=== PATIENT | female | born 1950 | race Caucasian/White ===

== ENCOUNTER → 2020-04-13 13:14 | Outpatient (BNVA) | payer MEDICARE, OTHER, SELFPAY | PROVIDERS: Family Provider Family Medicine; PCP Family Medicine; Visit Provider Orthopaedic Surgery | DX: M47.894 Other spondylosis, thoracic region (principal); M47.892 Other spondylosis, cervical region; M54.6 Pain in thoracic spine; M54.2 Cervicalgia; M54.5 Low back pain | CPT/HCPCS: 72050; 72070; 72114 ==

== ENCOUNTER 2020-09-15 08:03 | Outpatient (CLI) | payer MEDICARE, OTHER, SELFPAY ==
[2020-09-15 08:26] VITALS: BMI 33.5
--- NOTE | 2020-09-15 08:29 | ECG_ITS ---
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 The perfusion scan will be documented separately. DATA: Baseline heart rate was 74 beats per minute. Baseline blood pressure was 160/103 millimeters of mercury. Target heart rate was 148. Maximum heart rate achieved was 132. which was 89 % of the predicted target heart rate. Maximum blood pressure was 182/103 millimeters of mercury. The reason for ending the test was completion of the protocol. The patient did not experience any symptoms. ELECTROCARDIOGRAM: BASELINE: Sinus rhythm. Normal axis. Right bundle branch block EXERCISE: After Lexiscan injection, no ST-T changes suggestive of ischemic noted. No arrhythmia noted. CONCLUSION: Please note due to baseline abnormality of the EKG specificity and sensitivity of the EKG portion of LexiScan MIBI stress test will be low 1. EKG not suggestive of ischemia 2. Lexiscan injection unremarkable. 3. Perfusion scan will be documented separately. Electronically Signed On 10-12-2020 18:55:04 CDT by ANEL CORBIN [email or web address]
--- NOTE | 2020-09-15 08:30 | NMCV_ITS ---
NM carmen perf SPECT r/s* [id number] Hector Delgadillo Age: 70 Gender: F : 1950 Exam Date: 09/15/2020 09:56 Ordering Phys: Karishma Diego Technologist: YULIANA Cruz Exam Location: [facility] Indications: ANGINA STRESS TEST Please see separate stress test report in [facility] for full findings IMAGE PROTOCOL Rest/Stress 1 Lexiscan Day Radiopharmaceutical Dose (mCi) Administration Site Administered by Rest: Tc-99m 10.6 IV Pat Pickard, YULIANA Sestamibi Stress:Tc-99m 33.0 IV Pat Pickard, LEARNING ADMINISTRATOR Sestamibi Rest: 15-Sep-2020 60 Discovery 630 Stress: 15-Sep-2020 30 Discovery 630 0.4mg Lexiscan. Images obtained in supine and prone position. SPECT RESULTS Technical Quality: Excellent Raw Data Analysis: Normal Image Corrections: No attenuation or motion correction applied Summed Stress Score: 4 Summed Rest Score: 1 Summed Difference Score: 3 PERFUSION FINDINGS SPECT images demonstrate homogeneous tracer distribution throughout the myocardium. FUNCTIONAL RESULTS (calculated via Gated SPECT) Stress Image LV EF (%): 79 Stress EDV (mL):87 TID: 1.11 Stress ESV (mL):18 Rest Image LV EF (%): 79 FUNCTIONAL FINDINGS: There is normal left ventricular systolic function. IMPRESSIONS Myocardial perfusion imaging is normal low probability for obstructive coronary disease. EKG segment will be documented separately. Sindhu Keith MD (Electronically Signed) Final Date: 15 September 2020 12:48 S
[2020-09-15] MEDS: regadenoson 0.4 Mg/5 ml Syringe IVP (10:32)
--- NOTE | 2020-09-15 10:32 | SUR.PREOP ---
Patient reports no pain or discomfort prior to the start of the procedure.
[2020-09-15 10:41] VITALS: BP 152/84; PULSE 99
== END 2020-09-15 08:04 | disposition home or self-care (01) ==
LOC: CDL 08:08
PROVIDERS: PCP Family Medicine; Visit Provider Nurse Practitioner Family
DX: I20.9 Angina pectoris, unspecified (principal)
CPT/HCPCS: 78452; 93017; A9500; J2785

== ENCOUNTER → 2020-09-28 10:50 | Outpatient (BNVA) | payer MEDICARE, OTHER, SELFPAY | PROVIDERS: PCP Family Medicine; Visit Provider Nurse Practitioner Family | DX: E78.5 Hyperlipidemia, unspecified (principal); I25.10 Atherosclerotic heart disease of native coronary artery without angina pectoris; I50.30 Unspecified diastolic (congestive) heart failure | CPT/HCPCS: 80048; 80061; 85025 ==

== ENCOUNTER → 2020-10-11 10:01 | Outpatient (BNVA) | payer MEDICARE, OTHER, SELFPAY | PROVIDERS: PCP Family Medicine; Visit Provider Nurse Practitioner Family | DX: I25.10 Atherosclerotic heart disease of native coronary artery without angina pectoris (principal); I50.30 Unspecified diastolic (congestive) heart failure | CPT/HCPCS: 87635 ==

== ENCOUNTER 2020-10-15 09:22 | Outpatient (CLI) | payer MEDICARE, OTHER, SELFPAY ==
[2020-10-14] VITALS (23 sets, daily range): BP systolic 105–166; BP diastolic 61–111; PULSE 58–89; RESP 16–28; TEMP 36.5; O2SAT 90–95; BMI 33.6
--- NOTE | 2020-10-14 09:00 | XACV_ITS ---
Exam Room: [facility] Ht: 160 cm Wt: 86 kg BSA: 1.99 m2 Gender: Female : 1950 Exam Priority: Routine Procedure(s): Procedure Description: Diagnostic procedure Procedure Description: Coronary Angiography Diagnostic Cath Status: Elective Diagnostic Findings * Left Main has no disease. * Mid Left Anterior Descending: total occlusion, ANDREY: 0 flow. * Left Internal Mammary Artery to Distal Left Anterior Descending graft: patent. * Proximal Right Coronary Artery to Mid Right Coronary Artery: obstructive 60% stenosis, ANDREY: 3 flow. * Mid Circumflex: total occlusion, ANDREY: 0 flow. * Ascending Aorta to Distal Circumflex graft: patent. * 1st Diagonal: significant 80% stenosis, ANDREY: 3 flow. * Ascending Aorta to 1st Diagonal graft: patent. * Three grafts visualized. * Coronary angiography shows right dominance. Conclusions 1. There is total occlusion coronary artery disease with three vessel disease. 2. Three coronary grafts visualized: all grafts patent. 3. Patient has prior CABG. 4. FFR: After equalizing the distal and proximal pressure of FFR wire proximal to the lesion, mid RCA lesion was crossed with FFR wire. IV adenosine at rate of 140 mcg/min was started. Patient did not compliant of any symptoms, at then end of two minutes FFR was recorded as 0.86, which is not significant . Recommendations * Continue current medical management and risk factor modification. Diagnostic RX Recommendation: medical therapy and/or counseling Pressures Phase:Rest AO : 145 / 69 ( 102 ) @ 10:29:00 AM 143 / 69 ( 100 ) @ 10:29:00 AM 134 / 62 ( 91 ) @ 10:30:00 AM LV : 70 / -16 / 2 @ 10:28:00 AM 145 / -17 / 11 @ 10:29:00 AM Valves Phase:DefaultPhase AV : 0.0 @ 12:00:34 PM AV Mean Gradient: 0.0 @ 12:00:34 PM Clinical Evaluation EBL: 5mL-10mL Procedural Details Procedure Consent Obtained. Pre-Procedure Time Out. Identified patient by full name and date of as verbalized by the patient/guarantor. Does the consent match the physician's order: Yes. Accurate & Complete Informed Consent: Yes. Inpatient/Outpatient History & Physical on Chart: Yes. If H&P is completed, is and addenduem needed: No; If yes, is the addendum complete: N/A. Visualize and Verify Site with Patient/Guarantor: N/A. Relevant Radiology Images available: Yes. Pre-op teaching completed and patient verbalized understanding. The risks, benefits, and alternatives of sedation and/or procedure were discussed by physician. The patient agrees to continue. Procedure started. Correct patient, site and procedure confirmed by cath team. Current diagnosis: Chest Pain. PERRLA. 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 Lungs clear x 5 lobes. IV Site on Arrival: 20 gauge in the right anticubital. IV Fluids: 0.9% NaCl at KVO. 0 mL infused prior to microbiology lab manager. Pre Procedural Pulses: bilateral dorsalis pedis was 3+. Pre Procedural Pulses: bilateral posterior tibial was Doppled. Pre Procedural Pulses: bilateral radial was 3+. Oxygen started at 2liters/min via nasal canula. bilateral groins was prepped with chloroprep then draped in the usual sterile fashion. Physician notified. Baseline sample Acquired. HR: 67 BPM. Equipment: 6F - Femoral. Cardiac Cath Pack. ACIST Manifold Kit Model BT 2000. Heparinized Saline (2 units/mL), 1000 mL bag. Kit, Micropuncture. Physician arrived. Physician scrubbed in. Immediate Pre-Procedure Time Out. Correct Patient: Yes; Correct Procedure: Yes; Correct Site: Yes; Correct Patient Position: Yes; Correct Supplies: Yes; Dried Flammable Prep: Yes; Blood Products Available: No;. Lidocaine 1% infiltrated to the right groin. Arterial access obtained. A 6 german JR4 catheter in over wire. Multiple views taken of left coronary artery. Catheter removed over the exchange wire. A 6 german JR4 catheter in over wire. EDP Sample taken: LV 70/-17,2; HR: 62 BPM; SpO2: 96%. Pullback taken: LV 145/-18,11; AO 145/69(102); Mean: 0mmHg, Peak to Peak: 0mmHg, SEP: 16sec/min; HR: 66 BPM; SpO2: 96%. SVG's to Diaganol visualized and patent. SVG's to PDA visualized and patent. OSORIO to LAD visualized. 6 german JR 4 guide catheter was inserted over the wire. Pressure wire inserted. Wire seated in the RCA. An FFR value of 0.85 was obtained for a lesion located at Prox RCA. Adenosine 722ml/hr ran for 2 minutes during FFR. Wire out. Guide out. Total IV fluids: 59 mL. Medication's Wasted: Other = Adenosine 25 mg. Medication's Wasted: Other = Versed 1 mg. Medication's Wasted: Lidocaine 1% = 10 mL. Medication's Wasted: Heparin = 3000 units. A Suture was successful obtaining hemostatsis at the Right Femoral artery insertion site. Sheath(s) sutured into position with 2-0 silk and sterile 4x4's and Op-site applied over the site. No oozing or signs and symptoms of hematoma noted. Arterial sheath flushed and connected to tranducer and pressure bag with heparinized saline. Post Procedure: Pulses reassessed and unchanged. PERRLA. 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 No VTE prophylaxis required. Contrast type used: Omnipaque 300 mgI/mL, 500 mL bottle. Post-op diagnosis: Small vessel disease. Complications: None. Estimated blood loss: 5mL-10mL. Vital chart was stopped. Procedure completed. Patient transferred by bed to 1st floor. Access Site Site: Right Femoral artery Sheath Size: 6 Fr Hemostasis Method: Suture Hemostasis Success: Successful Procedure Medications Start: 11:14 AM Stop: 11:14 AM Medication: Versed Amount: 1 mg Route: I.V. Start: 11:16 AM Stop: 11:16 AM Medication: Versed Amount: 1 mg Route: I.V. Start: 11:38 AM Stop: 11:38 AM Medication: Heparin Amount: 6000 units Route: I.V. Start: 11:45 AM Stop: 11:45 AM Medication: Versed Amount: 1 mg Route: I.V. I, the attending physician, have reviewed and verified all procedure medications. Yes, all medications given per verbal order History/Risk Factors Hypertension: Yes Dyslipidemia: Yes Peripheral Arterial Disease (PAD): No Myocardial Infarction (FL): No Obesity: No Renal Disease: No Prior Interventions PCI: Yes CABG: Yes Valve Surgery: No Date of PCI: 12/22/2014 Report Signatures Finalized by Sindhu Keith MD on 10/27/2020 09:39 PM
[2020-10-14] MEDS: diphenhydrAMINE 50 mg Capsule PO (09:32)
--- NOTE | 2020-10-14 10:58 | W.PM.OPSUD ---
Surgery/Procedure H&P Update DATE OF PROCEDURE: October 14, 2020 DATE H&P PERFORMED: 09/28/20 H&P UPDATE INFORMATION: I have reviewed H&P completed within last 30 days, I have examined patient prior to procedure and No changes to prior documentation PREOP DIAGNOSIS: Unstable angina despite optimization of medicine PLANNED PROCEDURE: Operation Date: 10/14/20 10:00 Proposed Procedures p Cardiac Catheterization(Left) - Sindhu Keith MD PATIENT REASSESSED PRIOR TO SEDATION, WITH NO CHANGE NOTED: Yes PHYSICAL EXAM: alert, oriented x 3 and clear to auscultation bilaterally AIRWAY EVAL/ANESTHESIA PLAN: ASA II, Risks, benefits & alternatives of sedation and/or procedure discussed and Patient agrees to continue as planned
[2020-10-14] MEDS: isosorbide mononitrate ER 30 mg Tablet PO (14:08)
[2020-10-14 15:00] LABS: Partial Thromboplastin Time 99.8 SECONDS (23.9-36.7)
[2020-10-14 17:20] LABS: Partial Thromboplastin Time 32.7 SECONDS (23.9-36.7)
[2020-10-14] MEDS: pantoprazole DR 40 mg Tablet PO (18:12)
[2020-10-14] MEDS: oxybutynin 5 mg Tablet PO (18:12)
--- NOTE | 2020-10-14 19:00 | PC.NURSE ---
Bedside report received from Rona Montiel RN. Patient is resting in bed. Patient is alert and oriented. Patient has no complaints of pain or other needs at this time. Right Groin shows no signs of hematoma. Nurse will continue to monitor.
[2020-10-14] MEDS: metoprolol tartrate 50 mg Tablet PO (20:38)
[2020-10-14] MEDS: atorvastatin 40 mg Tablet 20 MG PO (20:39)
[2020-10-14] MEDS: acetaminophen 325 mg Tablet PO (20:40)
[2020-10-14] MEDS: clopidogrel 75 mg Tablet PO (20:40)
--- NOTE | 2020-10-15 00:46 | PC.NURSE ---
Helped patient to the restroom. Right groin shows no signs of hematoma formation. Patient has no complaints of pain. Nurse will continue to monitor.
[2020-10-15 02:45] VITALS: BP 142/62; PULSE 81; RESP 21; TEMP 36.6
[2020-10-15 06:00] VITALS: PULSE 62
[2020-10-15 07:45] VITALS: BP 159/85; PULSE 60; RESP 18; TEMP 36.8; O2SAT 95
[2020-10-15 07:58] VITALS: PULSE 90; O2SAT 91
[2020-10-15] MEDS: cyanocobalamin 1,000 mcg Tablet 1000 MCG PO (08:58)
[2020-10-15] MEDS: aspirin 81 mg EC Tablet PO (08:58)
[2020-10-15] MEDS: cholecalciferol (vitamin D3) 1,000 unit Tablet 1000 UNIT PO (08:58)
[2020-10-15] MEDS: levothyroxine 100 mcg Tablet PO (08:58)
[2020-10-15] MEDS: multivitamin therapeutic Tablet 1 TAB PO (08:59)
[2020-10-15] MEDS: pantoprazole DR 40 mg Tablet PO (08:59)
[2020-10-15] MEDS: oxybutynin 5 mg Tablet PO (08:59)
[2020-10-15] MEDS: isosorbide mononitrate ER 30 mg Tablet PO (08:59)
[2020-10-15] MEDS: metoprolol tartrate 50 mg Tablet PO (09:07)
--- NOTE | 2020-10-15 09:50 | PM.SDS ---
Short Stay Summary Providers Date of Admit/Discharge: 10/16/20 Attending Provider: Sindhu Keith MD Primary Care Provider: Siva Alcala MD Chief Complaint: [facility] HPI History of Present Illness Hector Delgadillo is a 70 year old female underwent left heart cath noted to have patent grafts including OSORIO to LAD, SVG to RCA and SVG to circumflex. She has noted to have small vessel disease which cause possibly causing shortness of breath and chest pain. We will optimize medicine. Post angiogram patient did fine from cardiovascular perspective. Right groin wound looks good she will be discharged home today. Home Meds/Allergies Home Medications and Allergies Home Medications Medication Instructions Recorded Confirmed Type acetaminophen 325 mg tablet 325 mg PO DAILY PRN tab 07/02/19 10/14/20 History aspirin 81 mg tablet,delayed 81 mg PO DAILY 07/02/19 10/14/20 History release cholecalciferol (vitamin D3) 25 25 mcg PO DAILY 07/02/19 10/14/20 History mcg (1,000 unit) capsule cyanocobalamin (vitamin B-12) 1,000 mcg PO DAILY 07/02/19 10/14/20 History 1,000 mcg capsule glucosamine HCl 1,500 mg tablet 1,500 mg PO BID tab 07/02/19 10/14/20 History levothyroxine 100 mcg capsule 100 mcg PO DAILY 07/02/19 10/14/20 History multivitamin 1 tab PO DAILY 07/02/19 10/14/20 History omeprazole 40 mg capsule,delayed 40 mg PO BID 07/02/19 10/14/20 History release oxybutynin chloride 5 mg tablet 5 mg PO BID 08/09/20 10/14/20 History Allergies Allergy/AdvReac Type Severity Reaction Status Date / Time opioids Allergy Unknown Uncoded 09/28/20 10:08 PFSH Acute PFSH: Medical History Coronary artery disease Diastolic heart failure Hyperlipidemia Surgical History S/P CABG (coronary artery bypass graft) S/P hysterectomy S/P right coronary artery (RCA) stent placement Family History Father Hypertension Heart disease Stroke Cancer brain Mother Cancer cervical Sister Cancer Other Hypercholesterolemia Dietary Habits: Current diet type/program: regular Vitals/I&O/Wt Last Vital Signs Temp 98.3 F 10/15/20 07:45 Pulse 90 10/15/20 07:58 Resp 18 10/15/20 07:45 BP 159/85 10/15/20 07:45 Pulse Ox 91 10/15/20 07:58 10/14/20 10/15/20 10/15/20 22:59 06:59 14:59 Intake Total 240 / 240 Balance 240 / 240 Weight last 48 hrs Weight 190 lb Physical Exam Narrative: EXAM NARRATIVE: GENERAL: Patient is alert, awake and oriented x3. NECK: No jugular vein distension. HEENT: No cyanosis. No icterus. No pallor. HEART: Regular S1 and S2. No murmur, rub or gallop. LUNGS: Clear to auscultate bilaterally. ABDOMEN: Soft, nontender and nondistended. Positive bowel sounds. No guarding, rebound or tenderness. CENTRAL NERVOUS SYSTEM: Grossly nonfocal. EXTREMITIES: Lower extremities without edema bilaterally. 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 Routin e Exams 10/14/20 09:00 Taken Discharge Plan Discharge Patient Disposition: Home Prescriptions: New ranolazine 500 mg tablet extended release 12 hr 500 mg PO BID Qty: 60 RF: 6 Continued omeprazole 40 mg capsule,delayed release(DR/EC) 40 mg PO BID RF: 0 cyanocobalamin (vitamin B-12) 1,000 mcg capsule 1,000 mcg PO DAILY RF: 0 cholecalciferol (vitamin D3) 25 mcg (1,000 unit) capsule 25 mcg PO DAILY RF: 0 aspirin [Adult Low Dose Aspirin] 81 mg tablet,delayed release (DR/EC) 81 mg PO DAILY RF: 0 levothyroxine 100 mcg capsule 100 mcg PO DAILY RF: 0 multivitamin Tablet 1 tab PO DAILY RF: 0 glucosamine HCl 1,500 mg tablet 1,500 mg PO BID RF: 0 acetaminophen [Tylenol] 325 mg tablet 325 mg PO DAILY PRN (Reason: Pain) RF: 0 oxybutynin chloride 5 mg tablet 5 mg PO BID RF: 0 metoprolol tartrate 50 mg tablet 50 mg PO BID 90 Days Qty: 180 RF: 3 nitroglycerin [Nitrostat] 0.4 mg tablet, sublingual 0.4 mg SUBLINGUAL Q5M PRN (Reason: chest pain) 30 Days Qty: 25 RF: 6 clopidogrel [Plavix] 75 mg tablet 75 mg PO DAILY Qty: 30 RF: 3 atorvastatin 20 mg tablet 20 mg PO DAILY Qty: 90 RF: 3 Discontinued isosorbide mononitrate 30 mg tablet extended release 24 hr 30 mg PO DAILY Qty: 90 RF: 3 Discharge Orders: Discharge Order (Routine); Ordered 10/15/20 Ordered By: Sindhu Keith Referrals: Sindhu Keith MD [Physician] - (YOUR October APPOINTMENT WAS RESCHEDULE FOR A FOLLOW UP APPOINTMENT WITH DR. KEITH ON October AT 1115 AM IN [place]. IF YOU HAVE ANY QUESTIONS OR NEED TO RESCHEDULE PLEASE CALL [phone]. ) Marcel Red FNP [Nurse Practitioner] - (YOU HAVE A FOLLOW UP APPOINTMENT WITH MARCEL RED ON September AT 1130 AM. IF YOU HAVE ANY QUESTIONS OR NEED TO RESCHEDULE PLEASE CALL [phone]) Diet: Cardiac Activity: Increase activity as tolerated Patient Instructions: Ranolazine (By mouth), Left Heart Catheterization (DC), Opioid Safety, Post Angiogram Home Care Instructions Activity Restrictions/Additional Instructions: Follow-up with Dr. Keith in [facility] next month Discharge Date/Time: 10/15/20 11:07 Attestations Medical Necessity Statement*: Patient was observed overnight post left heart cath Time Spent in Patient Care*: less than 30 min Specific Discharge Activities: Specific discharge activities: educating patient Quality Metrics Clinical Quality Measures: During this hospital stay, did patient experience: None Coding Level of Care Code Established Pt Acute Finance Controller for Chg Fwd Patient Type Established History Expanded Problem Focused Exam Expanded Problem Focused Medical Decision Making Moderate Complexity
[2020-10-15 10:00] VITALS: BP 118/78; PULSE 78; RESP 18; TEMP 36.9; O2SAT 90
[2020-10-15 10:31] VITALS: BP 118/78; PULSE 78; RESP 18; TEMP 36.9; O2SAT 90
--- NOTE | 2020-10-15 11:12 | PC.NURSE ---
called new Rx to [facility] in [place]
--- NOTE | 2020-10-15 11:12 | PC.NURSE ---
discharge to home Informed pt to follow-up with the scheduled appointments set-up for her. Educated pt on her new med action, dosing, timing and possible side effects. Discharge packet provided to pt.
== END 2020-10-15 11:07 | disposition home or self-care (01) ==
LOC: OPS 09:23 → CSU 09:24
PROVIDERS: PCP Family Medicine; Visit Provider Internal Medicine Cardiovascular Disease
DX: I25.10 Atherosclerotic heart disease of native coronary artery without angina pectoris (principal); I25.82 Chronic total occlusion of coronary artery; Z95.1 Presence of aortocoronary bypass graft; E78.5 Hyperlipidemia, unspecified; Z79.82 Long term (current) use of aspirin; I11.0 Hypertensive heart disease with heart failure; I50.30 Unspecified diastolic (congestive) heart failure
CPT/HCPCS: 36415; 85730; 93459; 93571; C1769; C1887; C1894; J0153; J1644; J2250; J3010; J7030; Q0163; Q9967

== ENCOUNTER → 2020-10-22 12:05 | Outpatient (BNVA) | payer MEDICARE, OTHER, SELFPAY | PROVIDERS: PCP Family Medicine; Visit Provider Nurse Practitioner Family | DX: I25.119 Atherosclerotic heart disease of native coronary artery with unspecified angina pectoris (principal); I50.32 Chronic diastolic (congestive) heart failure | CPT/HCPCS: 80048 ==

== ENCOUNTER → 2021-01-26 15:42 | Outpatient (BNVA) | payer MEDICARE, OTHER, SELFPAY | PROVIDERS: PCP Family Medicine; Referring Provider Family Medicine; Visit Provider Podiatrist Foot & Ankle Surgery | DX: M21.611 Bunion of right foot (principal); M79.671 Pain in right foot | CPT/HCPCS: 73630 ==

== ENCOUNTER → 2021-03-14 10:23 | Outpatient (BNVA) | payer MEDICARE, OTHER, SELFPAY | PROVIDERS: PCP Family Medicine; Referring Provider Podiatrist Foot & Ankle Surgery; Visit Provider Podiatrist Foot & Ankle Surgery | DX: S86.019A Strain of unspecified Achilles tendon, initial encounter (principal); X58.XXXA Exposure to other specified factors, initial encounter; Z20.822 Contact with and (suspected) exposure to COVID-19 | CPT/HCPCS: 87635 ==

== ENCOUNTER 2021-03-18 10:10 | Day surgery (SDC) | payer MEDICARE, OTHER, SELFPAY ==
[2021-03-17 13:32] VITALS: BMI 36.1
[2021-03-18] VITALS (10 sets, daily range): BP systolic 111–148; BP diastolic 61–89; PULSE 66–85; RESP 14–18; TEMP 36.3–36.8; O2SAT 92–95
--- NOTE | 2021-03-18 | SCC_ITS ---
PROCEDURE DONE: Right Achilles tendonosis and haglunds deformity repair 0 seconds of fluoroscopic guidance, for a cumulative dose of 0.01 mGy, was provided to Dr. Villasenor by the radiology department. C-arm images of the RIGHT foot were saved for the patient's permanent record. DANNY
[2021-03-18] MEDS: sodium chloride 0.9% 1,000 ML 30 ML IV (10:51)
[2021-03-18] MEDS: midazolam 1 mg/mL INJ 5 ML 5 MG IVP (11:28)
--- NOTE | 2021-03-18 11:29 | P.HPUD_ITS ---
Surgery/Procedure H&P Update DATE OF PROCEDURE: March 18, 2021 DATE H&P PERFORMED: 03/18/21 H&P UPDATE INFORMATION: I have reviewed H&P completed within last 30 days, I have examined patient prior to procedure, No changes to prior documentation and H&P is in [facility] EMR on date indicated PREOP DIAGNOSIS: Right Achilles tendonosis and haglunds deformity PLANNED PROCEDURE: Operation Date: 03/18/21 12:05 Proposed Procedures p Gastrocnemius Recession [id number] M79.673 M76.60(Right) - Vaughn Perez DPM s Tendon Repair Foot(Right) - Vaughn Perez DPM s Haglunds Resection(Right) - Vaughn Perez DPM
--- NOTE | 2021-03-18 11:29 | P.HP_ITS ---
Providers/Chief Complaint Primary Care Provider: Siva Alcala MD Chief Complaint: gastrocnemius History of Present Illness 70 year old female patient presenting to the clinic for Achilles Tendonitis right foot. She is here today to review MRI report. She rates her pain a 6/10, she describes the pain as stabbing. Pain has been present for greater than 3 years she has failed formal and at home physical therapy, shoe modifications, stretching, anti-inflammatories and TENS unit. Got her MRI done is here to discuss findings. Review of Systems General: Reports: 10 or more systems reviewed and unremarkable except in HPI and below Const: Denies: fever(s) or chills Eyes: Denies: change in vision Card: Denies: chest pain or palpitations Resp: Denies: dyspnea or productive cough GI: Denies: abdominal pain, nausea or vomiting : Denies: flank pain Musc: Reports: extremity pain Skin/Breast: Denies: rash Neuro: Denies: numbness in extremities, sensory changes or frequent falls Psych: Denies: suicidal ideation Placido/Lymph: Denies: easy bruising Medications/Allergies Home Medications Medication Instructions Recorded Confirmed Last Taken Type acetaminophen 325 mg tablet 325 mg PO DAILY PRN tab 07/02/19 03/17/21 10/12/20 History cholecalciferol (vitamin D3) 25 25 mcg PO DAILY 07/02/19 03/18/21 03/17/21 History mcg (1,000 unit) capsule cyanocobalamin (vitamin B-12) 1,000 mcg PO DAILY 07/02/19 03/18/21 03/17/21 History 1,000 mcg capsule glucosamine HCl 1,500 mg tablet 1,500 mg PO BID tab 07/02/19 03/18/21 03/17/21 History levothyroxine 100 mcg capsule 100 mcg PO DAILY 07/02/19 03/18/21 03/17/21 History multivitamin 1 tab PO DAILY 07/02/19 03/18/21 03/17/21 History omeprazole 40 mg capsule,delayed 40 mg PO BID 07/02/19 03/18/21 03/17/21 History release nitroglycerin 0.4 mg sublingual 0.4 mg SUBLINGUAL Q5M PRN 30 Days 07/31/19 03/17/21 Unknown Rx tablet #25 tab oxybutynin chloride 5 mg tablet 5 mg PO BID 08/09/20 03/18/21 03/17/21 History metoprolol tartrate 50 mg tablet 50 mg PO BID 90 Days #180 tab 10/26/20 03/18/21 03/17/21 Rx clopidogrel 75 mg tablet 75 mg PO DAILY #30 tab 11/25/20 03/18/21 03/13/21 Rx atorvastatin 40 mg tablet 40 mg PO DAILY #90 tab 12/01/20 03/18/21 03/16/21 Rx aspirin 81 mg tablet,delayed 81 mg PO BID tab 03/02/21 03/18/21 03/13/21 History release omega-3 fatty acids 1,000 mg 1,000 mg PO BID 03/02/21 03/18/21 03/17/21 History capsule scopolamine base 1 mg over 3 days 1 patch TRANSDERMAL Q3D PRN #1 ea 03/11/21 03/18/21 03/17/21 Rx transdermal patch Allergies Allergy/AdvReac Type Severity Reaction Status Date / Time opioids Allergy Unknown Uncoded 03/17/21 13:29 PFSH PFSH: Medical History Coronary artery disease Diastolic heart failure Hyperlipidemia Surgical History S/P CABG (coronary artery bypass graft) S/P hysterectomy S/P right coronary artery (RCA) stent placement Family History Father Hypertension Heart disease Stroke Cancer brain Mother Cancer cervical Sister Cancer Other Hypercholesterolemia Social History (Updated 03/02/21 @ 10:05 by Dimple Green LPN) Smoking and tobacco status: never smoked Alcohol intake: never Dietary Habits: Caffeine: Yes Vital Signs Vitals Signs: Last Vital Signs Temp 98.2 F 03/18/21 10:23 Pulse 78 03/18/21 10:23 Resp 16 03/18/21 10:23 BP 148/89 03/18/21 10:23 Pulse Ox 95 03/18/21 10:23 Weight: Weight last 48 hrs Weight 185 lb Physical Exam Narrative: EXAM NARRATIVE: Patient is alert and oriented ?3 and in no acute distress. The following is a focused bilateral lower extremity exam. VASCULAR: Dorsalis pedis and posterior tibial arteries palpable +2. Capillary refill time less than 3 seconds to the distal hallux bilaterally. Calf is supple and nontender proximally and distally. No pedal edema appreciated. Pedal hair growth present. NEUROLOGICAL: Epicritic and protopathic sensations grossly intact to the lower extremities. +2 Achilles tendon reflex noted bilaterally. Negative Tinel sign upon percussion of lower extremity nerves. DERMATOLOGICAL: Lower extremity skin is well-hydrated, normal texture and turgor. There are no open sores or lesions noted to the lower extremities. No erythema or ecchymosis present to the bilateral legs and feet. MUSCULOSKELETAL: Osseous prominence at the right posterior calcaneus with pain to palpation on insertion of Achilles tendon at the posterior calcaneus right. No palpable dell along the course of the watershed zone of the right Achilles tendon. Muscle strength is 5 out of 5 in all 3 cardinal planes to the right foot and ankle. CARDIOVASCULAR: S1, S2, normal rate, normal rhythm. Dorsalis pedis and posterior tibial arteries palpable. LUNGS: Clear to auscltation, no use of acessory muscles, no crackles or wheezes. A&P Assessment and plan (1) Denise's deformity of right heel: Status: Acute Received images of MRI awaiting report to be faxed from [facility]. Per my read there is intrasubstance signal at insertion of Achilles, there is thickening of the Achilles tendon at insertion with edema and increased signal suggestive of mucoid degeneration. Patient states that she can no longer go on like this, has been in pain for 3 years. Failed conservative treatment modalities including physical therapy. Would like to discuss surgical repair. I advised cardiology clearance will need to be done before surgery. Surgery will require general anesthesia for 60 minutes in a prone position. Surgery would entail Achilles tendon debridement, repair and Denise's resection of the right posterior calcaneus. Risks include pain, bleeding, numbness, infection, hardware failure, Achilles rupture, damage to adjacent soft tissue structures, permanent numbness, swelling, bruising, surgical site dehiscence, postoperative surgical site infection, need for further surgical intervention. Coding Level of Care Code Acute Correspondence Renew Clerk for [facility] Diagnoses Denise's deformity of right heel M92.61
--- NOTE | 2021-03-18 11:39 | XR_ITS ---
WS: [id number] Right foot, 2 views, 03/18/2021 Clinical Data: post op Comparison: Right foot, 01/26/2021. Findings: There is a fiberglass splint about the right foot. There is irregularity of the posterior superior as pect of the right calcaneus. XR/XR foot RT 2V [id number] Impression: Irregularity of posterior superior aspect of right calcaneus.
--- NOTE | 2021-03-18 11:40 | ANES.PREANE2 ---
Pre-Anesthetic Assessment Pre-Anesthetic Assessment: Height/Weight: Height 1.52 m Weight 83.915 kg Temp Pulse Resp BP Pulse Ox 98.2 F 78 16 148/89 95 03/18/21 10:23 03/18/21 10:23 03/18/21 10:23 03/18/21 10:23 03/18/21 10:23 Preop Diagnosis: Right Achilles tendonosis and haglunds deformity Proposed Procedure: Operation Date: 03/18/21 12:05 Proposed Procedures p Gastrocnemius Recession [id number] M79.673 M76.60(Right) - Vaughn Perez DPM s Tendon Repair Foot(Right) - ROOSEVELT Rubio Haglunds Resection(Right) - Vaughn Perez DPM Was Beta Lynn taken within 24 hours: Yes Was Clonidine taken within 24 hours: N/A Last intake: Intake Last Liquid Date 03/17/21 Last Liquid Time 23:00 Last Solid Date 03/17/21 Last Solid Time 20:30 Social: Social History: No alcohol and No tobacco Exam: Pre-Anes Outpt Exam: alert, oriented x 3, clear to auscultation bilaterally and regular rate & rhythm Airway: Submandibular: WNL Cervical ROM: WNL MP: 2 CV/HEM: CV/HEM: CAD (CABG) and HTN GI: GI: GERD Metabolic: Metabolic: Morbid obesity and Thyroid Anesthetic Plan: ASA status: 3 Anesthesia: General and Regional (specify below) (right pop blk) Risk of > 500 ml blood loss (7ml/kg in children): No Meds/Allergies Current Medications: Current Medications Generic Name Dose Route Start Last Admin Trade Name Freq PRN Reason Stop Dose Admin Sodium Chloride 1,000 mls @ 30 ml s/hr 03/18/21 10:30 03/18/21 10:51 Sodium Chloride 0.9% IV 03/19/21 10:29 30 mls/hr .Q24H JACKSON Administration PFSH Anesthesia PFSH: Medical History Coronary artery disease Diastolic heart failure Hyperlipidemia Surgical History S/P CABG (coronary artery bypass graft) S/P hysterectomy S/P right coronary artery (RCA) stent placement Family History Father Hypertension Heart disease Stroke Cancer brain Mother Cancer cervical Sister Cancer Other Hypercholesterolemia Social History (Updated 03/02/21 @ 10:05 by Dimple Green LPN) Smoking and tobacco status: never smoked Alcohol intake: never Data Anesthesia Cardiac Studies: No Data to Display
--- NOTE | 2021-03-18 11:41 | ANES.PROC ---
Anesthesia Procedures Procedure/Date: 03/18/21 Nerve Block ^: Nerve Block 1: Main Anesthesia: general anesthesia Time Out Performed: Yes Consent: requested by attending/covering physician, from patient, risks and benefits reviewed and patient agrees to proceed Nerve block location: popliteal (right) Anesthesia monitors applied: pulse oximetry, EKG, BP cuff and oxygen Nerve block position: other (prone) Anesthetic Used: ropivicaine 0.5% Amount of anesthesia used (mL): 30 Ultrasound used to: recognize landmarks Nerve Stimulator Used?: No Interscalene/Femoral BLK: 4 stimuplex 21 g needle used for position and inplane approach, visualize local anesthetic spread and no vascular puncture identified Injection: neg aspiration of heme Patient Tolerated Procedure: well Complications: none
[2021-03-18 11:54] LABS: Basophils % 0.5 %; Eosinophils # 0.2 10^3/uL (0.0-0.8); Eosinophils % 3.1 %; Hematocrit 47.1 % (37.0-47.0); Hemoglobin 15.5 g/dL (11.5-15.3); Lymphocytes # 1.4 10^3/uL (0.8-4.8); Lymphocytes % 21.9 %; Mean Corpuscular HGB Conc 32.9 g/dL (30.0-36.0); Mean Corpuscular Hemoglobin 31.2 pg (28.0-34.0); Mean Corpuscular Volume 94.8 fl (81-99); Mean Platelet Volume 9.7 fL (7.4-10.4); Monocytes # 0.6 10^3/uL (0.2-0.9); Monocytes % 9.2 %; Neutrophils # 4.04 10^3/uL (1.8-7.7); Nucleated Red Blood Cells % 0 %; Platelet Count 318 10^3/cmm (130-400); Red Blood Count 4.97 10^6/uL (4.1-5.3); Red Cell Distribution Width 12.8 % (12.1-15.1); White Blood Count 6.2 10^3/uL (4.0-10.0)
--- NOTE | 2021-03-18 13:03 | P.OP_ITS ---
Operative Report Date of procedure: March 18, 2021 Pre-op Diagnosis: Right Achilles tendonosis and haglunds deformity Post-op diagnosis: same Implants: Arthrex speed bridge, 3-0 Vicryl, 3-0 nylon Pathology: none sent Surgeon: Vaughn Perez D.P.M. Clinical Professor: Matilde Anesthesia: General Estimated blood loss: 10 Tourniquet time: 49 IV fluids: 0 Urine output: 0 Complications: None Condition: stable Disposition: PACU Brief History: Insertional Achilles tendinosis with Denise's deformity unresponsive to conservative measures necessitating surgical repair as pain is affecting her daily activities. Risks include pain, bleeding, numbness, infection, rupture of Achilles tendon, shortening of Achilles tendon, surgical site dehiscence, altered mechanics calcaneal gait and need for further surgical intervention. N.p.o. since midnight, Covid negative, informed consent signed I initialed her right foot. No guarantees written, expressed or implied. Patient is agreeable wishes to proceed. Procedure: Under mild sedation the patient was brought to the operating room and was placed on the operating table in supine position after general anesthesia was induced by anesthesia service. A timeout was performed. Popliteal block performed preoperatively per anesthesia. Well-padded pneumatic tourniquet applied high calf right lower extremity. Right lower extremity was scrubbed, prepped and draped utilizing normal aseptic technique. Right foot was then wrapped with an Esmarch bandage and the tourniquet inflated to 250 mmHg. Attention was directed to the Achilles distally where a midline incision at the Achilles was performed coursing distally it was a lazy S curving medially and then ending centrally at the posterior heel. Dissection carried down to peritenon utilizing combination of sharp and blunt technique. Care was taken to retract and preserve neurovascular and tendinous structures. All bleeders were ligated and cauterized as necessary. Achilles tendon was reflected from its insertion and Denise's resection was performed with a sagittal saw this was passed from operative field and all rough edges smoothed. Intraoperative fluoroscopy confirmed adequate resection of bony overgrowth measured 3 cm long by 1 cm thick by 3 cm wide. All rough edges were smoothed. Incision was flushed with saline, Achilles tendon was debrided and debulked of all devitalized and tendinosis. Next utilizing standard technique per library page recommendation a Achilles speed bridge was performed to reattach the Achilles tendon with excellent bony apposition and Achilles out to proper length. Incision was flushed with saline solution and closed in a layered fashion 3-0 Vicryl for peritenon and subcutaneous tissue and 3-0 nylon on skin. Incision was dressed with jumpstart, sterile 4 x 4, Kerlix, Jacoby wrap, cast padding and posterior splint with ankle in equinus position. Tourniquet was deflated and a prompt hyperemic response was noted to the distal digits of the right foot. Patient tolerated the procedure well and was transferred to the PACU with vital signs stable and vascular status intact. Following a period of postoperative monitoring she will be discharged home. She is to remain strict nonweightbearing to the right lower extremity, she is not a candidate for crutc hes due to poor strength, upper body pain and instability she is a fall risk should she utilize crutches this is not recommended. Patient has pain in her shoulders and difficulty balancing with her upper body. Patient will require wheelchair with extension for right leg elevation to remain strict nonweightbearing for the next 2 months. Order for wheelchair and operative report will be sent to [facility] of the [employer]. Patient was prescribed tramadol and will combine that with Tylenol postoperatively for pain control.
[2021-03-18] MEDS: lidocaine 1% INJ 20 mL INJECTION (13:05)
--- NOTE | 2021-03-18 13:18 | ANE.PACU2 ---
Inpatient post-anesthesia follow up: Airway intact: Yes Vital signs: Temperature 97.4 F Pulse Rate 85 Respiratory Rate 18 Blood Pressure 139/63 Pulse Oximetry 92 Oxygen Delivery Me thod Simple Mask Oxygen Flow Rate 8 Fraction of Inspir ed Oxygen Hydration adequate: Yes Nausea and vomiting: No Pain level: 1 Mental status: Baseline
== END 2021-03-18 14:48 | disposition home or self-care (01) ==
PROVIDERS: Anesthesiology; PCP Family Medicine; Visit Provider Podiatrist Foot & Ankle Surgery
PROC: (CPT 27687; principal; 2021-03-18 12:00)
PROC: (CPT 27650; 2021-03-18 12:00)
PROC: (CPT 27650; 2021-03-18 12:00)
DX: M92.61 Juvenile osteochondrosis of tarsus, right ankle (principal); M76.61 Achilles tendinitis, right leg; I25.10 Atherosclerotic heart disease of native coronary artery without angina pectoris; I11.0 Hypertensive heart disease with heart failure; I50.30 Unspecified diastolic (congestive) heart failure; E78.5 Hyperlipidemia, unspecified; Z95.1 Presence of aortocoronary bypass graft; Z95.5 Presence of coronary angioplasty implant and graft; Z82.49 Family history of ischemic heart disease and other diseases of the circulatory system; Z82.3 Family history of stroke; E66.01 Morbid (severe) obesity due to excess calories; Z68.36 Body mass index [BMI] 36.0-36.9, adult
CPT/HCPCS: 27650; 28118; 64450; 73620; 76000; 76942; 85025; C1713; J0690; J2250; J2405; J2550; J2704; J2710; J2795; J3010; J3490; J7030

== ENCOUNTER 2021-04-08 14:30 | Outpatient (CLI) | payer MEDICARE, OTHER, SELFPAY | END 2021-04-08 14:31 | disposition home or self-care (01) | LOC: SPT 14:32 | PROVIDERS: PCP Family Medicine; Visit Provider Podiatrist Foot & Ankle Surgery | DX: Z46.89 Encounter for fitting and adjustment of other specified devices (principal); M76.60 Achilles tendinitis, unspecified leg; M79.673 Pain in unspecified foot; M92.61 Juvenile osteochondrosis of tarsus, right ankle | CPT/HCPCS: L3170 ==

== ENCOUNTER → 2022-01-06 09:09 | Outpatient (BNVA) | payer MEDICARE, OTHER, SELFPAY | PROVIDERS: PCP Family Medicine; Visit Provider Family Medicine | DX: E55.9 Vitamin D deficiency, unspecified (principal); R73.09 Other abnormal glucose; E03.9 Hypothyroidism, unspecified; E53.8 Deficiency of other specified B group vitamins; Z51.81 Encounter for therapeutic drug level monitoring; Z13.220 Encounter for screening for lipoid disorders | CPT/HCPCS: 80053; 80061; 82306; 82607; 83036; 84439; 84443; 85025 ==

== ENCOUNTER → 2022-01-25 11:20 | Outpatient (BNVA) | payer MEDICARE, OTHER, SELFPAY | PROVIDERS: PCP Family Medicine; Visit Provider Internal Medicine Cardiovascular Disease | DX: I50.32 Chronic diastolic (congestive) heart failure (principal); E78.5 Hyperlipidemia, unspecified; I25.119 Atherosclerotic heart disease of native coronary artery with unspecified angina pectoris; Z95.1 Presence of aortocoronary bypass graft; Z95.5 Presence of coronary angioplasty implant and graft | CPT/HCPCS: 99213; 99214 ==

== ENCOUNTER 2022-04-13 10:42 | Outpatient (CLI) | payer MEDICARE, OTHER, SELFPAY ==
--- NOTE | 2022-04-13 10:52 | XR_ITS ---
WS: [id number] Exam: XR hip LT 2-3V wo/w pel* [id number] Date/Time of Exam: 04/13/2022 10:52 AM Reason For Exam: Left hip pain No fracture or dislocation. Advanced degenerative change with near [id number] articulation . Hypert rophic bony changes along the medial and lateral aspects of the femoral head and neck. Surgical clips in the upper medial thigh. XR/XR hip LT 2-3V wo/w pel* [id number] IMPRESSION: 1. Advanced degenerative change of the left hip with near rkew-hp-dudr articula tion. 2. No fracture noted.
== END 2022-04-13 10:43 | disposition home or self-care (01) ==
LOC: RAD 10:47
PROVIDERS: PCP Family Medicine; Visit Provider Family Medicine
DX: M16.12 Unilateral primary osteoarthritis, left hip (principal)
CPT/HCPCS: 73502

== ENCOUNTER → 2022-06-05 09:53 | Outpatient (BNVA) | payer MEDICARE, OTHER, SELFPAY | PROVIDERS: PCP Family Medicine; Referring Provider Family Medicine; Visit Provider Specialist | DX: M16.12 Unilateral primary osteoarthritis, left hip (principal) | CPT/HCPCS: 73502; 99204 ==

== ENCOUNTER → 2022-08-09 10:54 | Outpatient (BNVA) | payer MEDICARE, OTHER, SELFPAY | PROVIDERS: PCP Family Medicine; Visit Provider Nurse Practitioner Family | DX: I25.119 Atherosclerotic heart disease of native coronary artery with unspecified angina pectoris (principal); I50.32 Chronic diastolic (congestive) heart failure; E78.5 Hyperlipidemia, unspecified; Z95.1 Presence of aortocoronary bypass graft; Z79.82 Long term (current) use of aspirin | CPT/HCPCS: 99214 ==

== ENCOUNTER → 2022-09-20 07:58 | Outpatient (BNVA) | payer MEDICARE, OTHER, SELFPAY | PROVIDERS: PCP Family Medicine; Visit Provider Specialist | DX: M65.331 Trigger finger, right middle finger (principal); M65.341 Trigger finger, right ring finger | CPT/HCPCS: 73130; 99214 ==

== ENCOUNTER 2022-10-10 12:53 | Day surgery (SDC) | payer MEDICARE, OTHER, SELFPAY ==
[2022-10-09 17:03] VITALS: BMI 37.0
[2022-10-10] VITALS (10 sets, daily range): BP systolic 106–208; BP diastolic 70–98; PULSE 67–103; RESP 14–18; TEMP 36–36.4; O2SAT 95–99
[2022-10-10] MEDS: CELEcoxib 200 mg Capsule 400 MG PO (13:28)
[2022-10-10] MEDS: gabapentin 300 mg Capsule PO (13:28)
[2022-10-10] MEDS: sodium chloride 0.9% 1,000 ML 30 ML IV (13:29)
[2022-10-10] MEDS: acetaminophen 1,000 MG/100 ML PIGGYBACK 400 MG IV (13:29)
--- NOTE | 2022-10-10 13:59 | ANES.PREANE2 ---
Pre-Anesthetic Assessment Height/Weight: Height 1.52 m Weight 86.183 kg Temp Pulse Resp BP Pulse Ox O2 Del Method 96.8 F L 67 18 208/98 95 Room Air 10/10/22 13:16 10/10/22 13:16 10/10/22 13:16 10/10/22 13:16 10/10/22 13:16 10/10/22 13:16 Preop Diagnosis: Triggering right long and ring fingers Operation Date: 10/10/22 14:30 Proposed Procedures p RIGHT HAND TRIGGER RELEASE LONG FINGER AND RIGHT RING FINGER 20350,M65.30(Right) - Jina Walden MD Familial anesthetic complications: Patient has reactions to pain meds. Would like to avoid them entirely if possible. States benadryl alleviates her reactions Was Beta Lynn taken within 24 hours: Yes Was Clonidine taken within 24 hours: N/A Last intake: Intake Last Liquid Date 10/10/22 Last Liquid Time 00:00 Last Solid Date 10/09/22 Last Solid Time 18:00 Social No alcohol and No tobacco Exam alert, oriented x 3, clear to auscultation bilaterally and regular rate & rhythm Airway Mallampati: Class II Dentition: full CV/HEM Stable Angina, Coronary Artery Disease (cabg and stents) and Hypertension Metabolic Morbid Obesity and Thyroid Disease Anesthetic Plan ASA status: 3 Anesthesia: General Risk of > 500 ml blood loss (7ml/kg in children): No Medications/Allergies Home Medications Medication Instructions Recorded Confirmed Last Taken Type acetaminophen 325 mg tablet 325 mg PO DAILY PRN Pain 07/02/19 10/09/22 10/02/22 History (Tylenol) cholecalciferol (vitamin D3) 25 25 mcg PO DAILY 07/02/19 10/09/22 10/09/22 History mcg (1,000 unit) capsule cyanocobalamin (vitamin B-12) 1,000 mcg PO DAILY 07/02/19 10/09/22 10/09/22 History 1,000 mcg capsule glucosamine HCl 1,500 mg tablet 1,500 mg PO BID 07/02/19 10/09/22 10/09/22 History multivitamin 1 tab PO DAILY 07/02/19 10/09/22 10/09/22 History omeprazole 40 mg capsule,delayed 40 mg PO BID 07/02/19 10/09/22 10/09/22 History release nitroglycerin 0.4 mg sublingual 0.4 mg sublingual Q5M PRN chest 07/31/19 10/10/22 Unknown Rx tablet (Nitrostat) pain 30 days #25 tabs aspirin 81 mg tablet,delayed 81 mg PO BID 03/02/21 10/10/22 10/09/22 History release (Adult Low Dose Aspirin) omega-3 fatty acids 1,000 mg 1,000 mg PO BID 03/02/21 10/10/22 10/08/22 History capsule (Fish Oil Concentrate) Achilles lift to the right #1 ea 04/08/21 09/20/22 Unknown Rx metoprolol tartrate 50 mg tablet 50 mg PO BID #60 tabs 01/11/22 10/10/22 10/10/22 08:00 Rx atorvastatin 40 mg tablet 40 mg PO DAILY #90 tabs 02/14/22 10/10/22 1 Day Ago Rx ~10/09/22 clopidogrel 75 mg tablet (Plavix) 75 mg PO DAILY #90 tabs 06/07/22 10/10/22 10/09/22 Rx levothyroxine 112 mcg tablet See Rx Instructions .Route 10/02/22 10/09/22 10/09/22 06:00 Rx .COMPLEX #90 tabs oxybutynin chloride 5 mg tablet See Rx Instructions .Route 10/02/22 10/09/22 10/08/22 Rx .COMPLEX #60 tabs meloxicam 15 mg tablet 15 mg PO DAILY #30 tabs 10/09/22 10/10/22 10/06/22 Rx Allergies Allergy/AdvReac Type Severity Reaction Status Date / Time opioids Allergy Unknown Uncoded 10/10/22 13:09 Current Medications Generic Name Dose Route Start Last Admin Trade Name Freq PRN Reason Stop Dose Admin Sodium Chloride 1,000 mls @ 30 mls/hr 10/10/22 13:15 10/10/22 13:29 Sodium Chloride 0.9% IV 10/11/22 13:14 30 mls/hr .Q24H JACKSON Administration PFSH Anesthesia Medical History Coronary artery disease Diastolic heart failure Hyperlipidemia Surgical History S/P CABG (coronary artery bypass graft) S/P hysterectomy S/P right coronary artery (RCA) stent placement Family History Father Hypertension Heart disease Stroke Cancer brain Mother Cancer cervical Sister Cancer Other Hypercholesterolemia Social History Smoking and tobacco status: never smoked Alcohol intake: never Substance/Drug Use: never Data Anesthesia Cardiac Studies: Sestamibi Stress Test (Cardiology) 09/15/20
[2022-10-10] MEDS: ceFAZolin 2,000 MG in sodium chloride 0.9% (plus) 50 ML 100 MG IV (14:55)
--- NOTE | 2022-10-10 15:06 | W.PM.OPSUD ---
Surgery/Procedure H&P Update DATE OF PROCEDURE: October 10, 2022 DATE H&P PERFORMED: 10/20/22 H&P UPDATE INFORMATION: I have reviewed H&P completed within last 30 days, I have examined patient prior to procedure, No changes to prior documentation and H&P is in [facility] EMR on date indicated PREOP DIAGNOSIS: Triggering right long and ring fingers PLANNED PROCEDURE: Operation Date: 10/10/22 14:30 Proposed Procedures p RIGHT HAND TRIGGER RELEASE LONG FINGER AND RIGHT RING FINGER 12123,M65.30(Right) - Jina Walden MD Related Problem List Diagnoses (1) Trigger finger, right ring finger: (2) Trigger finger, right middle finger:
--- NOTE | 2022-10-10 16:19 | ANE.PACU2 ---
Inpatient post-anesthesia follow up: Airway intact: Yes Vital signs: Temperature 96.8 F Pulse Rate 67 Respiratory Rate 18 Blood Pressure 208/98 Pulse Oximetry 95 Oxygen Delivery Me thod Room Air Oxygen Flow Rate 6 Fraction of Inspir ed Oxygen Hydration adequate: Yes Nausea and vomiting: No Pain level: 2 Mental status: Baseline
--- NOTE | 2022-10-10 16:52 | P.OP_ITS ---
Operative Report Date of procedure: October 10, 2022 Pre-op diagnosis: Triggering of right ring and long fingers Post-op diagnosis: Triggering of right ring and long fingers Post-op findings: Thickening of the A1 kelvin with triggering Procedure done: Release right ring and long finger triggering Pathology: none sent Surgeon: Jina Walden [employer] Surveyor: None Anesthesia: General (Per LMA, ASA 3) Estimated blood loss (mL): 10 Tourniquet time (min): 20 (At 250 mmHg) IV fluids (mL): 500 Urine output (mL): 0 (No Antonio) Complications: None Findings: Significant thickening of the A1 kelvin of each finger and thickened tenosynov ium Condition: stable Disposition: PACU (Then to same-day surgery for discharge to home) Brief History: Hector Delgadillo is an established 72 year old female patient who presents today for release of her right ring and long finger triggering. Patient states several years ago she had a contusion to her hand affecting those two digits. She states over the past 6 months it has been getting worse and is interrupting daily activities such as: self hygiene, dressing, holding items. Patient rates her veronica n at 2/10 in clinic today. While at the office, the patient signed consents after deciding she wished to proceed with surgical intervention for correction of her triggering. Questions were answered. She presents today for the surgery. Procedure: Patient was brought to the operating theater. She was placed on the operating room table. A general anesthesia was administered per LMA, ASA 3, which the patient tolerated well. Additionally, she was given 2 g of Ancef prophylactically. A tourniquet was placed high on the arm and was elevated fo llowing exsanguination. Tourniquet time was 20 minutes. Surgical pause was performed prior to commencement of the surgical procedure. At the time of the surgical pause we identified the site and side of surgery. We also identified the patient's identity and appropriate administration of IV antibiotics. Following the surgical pause, an incision was made along the distal palmar crease beneath the long and ring fingers. Dissection continued through the skin to the subcutaneous tissues using a scalpel. Blunt dissection was then utilized to spread soft tissues and allow access to the A1 kelvin. Each A1 kelvin was identified. It was then incised longitudinally and sharply using a knife. This was accomplished without difficulty and atraumatically. Once the A1 pulleys were released, tendons were brought up out of the wound and evaluated. There were no gross masses or abnormalities to the tendon, however, on the ring finger, there was some abrasion of the tendon. Tendons returned to normal positions. We then irrigated the wound and subsequently closed it with 3-0 nylon with an interrupted mattress type suture. Following closure of the wound, the wound was injected with bupivacaine plain into the subcutaneous tissues as a local anesthetic. Sterile dressing was then placed consisting of OpSite, fluffed fluffs, sterile soft roll, and an Jacoby wrap. The patient was returned to recovery in satisfactory condition. She will be discharged home to follow-up with me in the office. There were no complications and no specimens. Related Problem List Diagnoses (1) Trigger finger, right ring finger: (2) Trigger finger, right middle finger:
== END 2022-10-10 17:30 | disposition home or self-care (01) ==
PROVIDERS: PCP Family Medicine; Visit Provider Specialist
PROC: (CPT 26055; principal; 2022-10-10 14:20)
DX: M65.341 Trigger finger, right ring finger (principal); M65.331 Trigger finger, right middle finger; I25.118 Atherosclerotic heart disease of native coronary artery with other forms of angina pectoris; Z95.1 Presence of aortocoronary bypass graft; Z95.5 Presence of coronary angioplasty implant and graft; E66.01 Morbid (severe) obesity due to excess calories; Z68.37 Body mass index [BMI] 37.0-37.9, adult; E03.9 Hypothyroidism, unspecified; Z79.82 Long term (current) use of aspirin; Z79.02 Long term (current) use of antithrombotics/antiplatelets; E78.5 Hyperlipidemia, unspecified; I50.30 Unspecified diastolic (congestive) heart failure; I11.0 Hypertensive heart disease with heart failure
CPT/HCPCS: 26055 ×2; J0131; J0690; J2704; J3010; J3490; J7030

== ENCOUNTER → 2022-10-24 09:08 | Outpatient (BNVA) | payer MEDICARE, OTHER, SELFPAY | PROVIDERS: PCP Family Medicine; Visit Provider Nurse Practitioner Family | DX: Z98.890 Other specified postprocedural states (principal) | CPT/HCPCS: 99024 ==

== ENCOUNTER → 2023-04-02 12:03 | Outpatient (BNVA) | payer MEDICARE, OTHER, SELFPAY | PROVIDERS: PCP Family Medicine; Visit Provider Family Medicine | DX: Z51.81 Encounter for therapeutic drug level monitoring (principal); E03.9 Hypothyroidism, unspecified; E55.9 Vitamin D deficiency, unspecified; R73.03 Prediabetes; E83.42 Hypomagnesemia; E53.8 Deficiency of other specified B group vitamins; R09.89 Other specified symptoms and signs involving the circulatory and respiratory systems; Z13.220 Encounter for screening for lipoid disorders; M25.552 Pain in left hip; D17.9 Benign lipomatous neoplasm, unspecified | CPT/HCPCS: 80053; 80061; 82306; 82607; 83036; 83735; 84439; 84443; 85025 ==

== ENCOUNTER 2023-04-12 09:24 | Outpatient (CLI) | payer MEDICARE, OTHER, SELFPAY ==
--- NOTE | 2023-04-12 09:30 | XR_ITS ---
WS: [id number] Exam: XR chest 2V* [id number] Date/Time of Exam: 04/12/2023 9:33 AM Reason For Exam: Crackles in base of lungs Comparison 12/15/2014. The lungs are fully expanded and clear. Heart size top limits normal. Signs of previous CABG surgery. Coronary artery stenting. Hiatal hernia. No pleural effusions. Bony structures are intact. DJD and i ncreased thoracic kyphosis. The mediastinum is normal in contour. IMPRESSION: 1. No acute cardiopulmonary finding. 2. Hiatal hernia.
== END 2023-04-12 09:25 | disposition home or self-care (01) ==
PROVIDERS: PCP Family Medicine; Visit Provider Family Medicine
DX: R09.89 Other specified symptoms and signs involving the circulatory and respiratory systems (principal)
CPT/HCPCS: 71046

== ENCOUNTER → 2023-05-09 08:04 | Outpatient (BNVA) | payer MEDICARE, OTHER, SELFPAY | PROVIDERS: PCP Family Medicine; Visit Provider Specialist | DX: M16.12 Unilateral primary osteoarthritis, left hip (principal) | CPT/HCPCS: 73502; 99214 ==

== ENCOUNTER → 2023-05-11 10:17 | Outpatient (BNVA) | payer MEDICARE, OTHER, SELFPAY | PROVIDERS: PCP Family Medicine; Visit Provider Internal Medicine Cardiovascular Disease | DX: I11.0 Hypertensive heart disease with heart failure (principal); I50.32 Chronic diastolic (congestive) heart failure; E78.2 Mixed hyperlipidemia; I25.119 Atherosclerotic heart disease of native coronary artery with unspecified angina pectoris; Z95.1 Presence of aortocoronary bypass graft; Z95.5 Presence of coronary angioplasty implant and graft | CPT/HCPCS: 99214 ==

== ENCOUNTER 2023-05-31 08:39 | Outpatient (CLI) | payer MEDICARE, OTHER, SELFPAY ==
--- NOTE | 2023-05-31 08:45 | MR_ITS ---
WS: [id number] EXAMINATION: MR hip LT wo con* [id number] ORDER DATE: 05/31/2023 9:04 AM COMPARISON: None. HISTORY: left hip pain TECHNIQUE: Coronal STIR of the Pelvis. Coronal proton density, coronal T1, axial T2 fat sat, axial T1 , sagittal T2 fat sat, and sagittal T1 performed of the hip. FINDINGS: Advanced arthritis LEFT hip with owbq-wk-kier articulation. Subchondral cystic change and edema invol ving the femoral head and adjacent acetabulum. Trace joint effusion. Extensive subchondral cystic daryl nge extends into the acetabulum and ilium. LEFT proximal femur appears normal. Mild degenerative narr owing RIGHT hip. No edema.Tiny nondisplaced hairline fracture with edema involving the femoral head e xtending to the articular surface. No displaced fractures. Hypertrophic changes about the LEFT femora l head and neck. Normal bone marrow signal in the bony pelvis and sacrum. No sacral insufficiency fractures. Few sigmo id diverticuli. IMPRESSION: 1. Tiny nondisplaced hairline fracture with edema involving the LEFT femoral head extending to the a rticular surface. 2. Advanced joint arthritis LEFT hip with beoo-mw-jzfd articulation. Advanced subchondral cystic daryl nge with edema involving the acetabulum and femoral head. 3. Unremarkable RIGHT hip.
== END 2023-05-31 08:40 | disposition home or self-care (01) ==
LOC: RAD 08:39
PROVIDERS: PCP Family Medicine; Visit Provider Specialist
DX: S72.092A Other fracture of head and neck of left femur, initial encounter for closed fracture (principal); X58.XXXA Exposure to other specified factors, initial encounter; M16.12 Unilateral primary osteoarthritis, left hip
CPT/HCPCS: 73721; 99214

== ENCOUNTER → 2023-06-06 16:58 | Outpatient (BNVA) | payer MEDICARE, OTHER, SELFPAY | PROVIDERS: PCP Family Medicine; Visit Provider Specialist | DX: Z01.818 Encounter for other preprocedural examination (principal); M25.552 Pain in left hip | CPT/HCPCS: 36415; 80053; 81003; 85025; 99214 ==

== ENCOUNTER 2023-06-14 10:22 | Observation (INO) | payer MEDICARE, OTHER, SELFPAY ==
[2023-06-14] VITALS (16 sets, daily range): BP systolic 104–165; BP diastolic 64–96; PULSE 58–72; RESP 12–25; TEMP 36.2–36.6; O2SAT 90–100; BMI 36.1
[2023-06-14] MEDS: gabapentin 300 mg Capsule PO (06:27)
[2023-06-14] MEDS: CELEcoxib 200 mg Capsule 400 MG PO (06:27)
[2023-06-14] MEDS: acetaminophen 1,000 MG/100 ML PIGGYBACK 400 MG IV ×2 (06:28→14:33)
[2023-06-14] MEDS: sodium chloride 0.9% 1,000 ML 30 ML IV (06:28)
--- NOTE | 2023-06-14 06:43 | ANES.PREANE2 ---
Pre-Anesthetic Assessment Height/Weight: Height 1.52 m Weight 83.915 kg Temp Pulse Resp BP Pulse Ox O2 Del Method 97.3 F L 58 L 18 165/94 94 Room Air 06/14/23 06:00 06/14/23 06:00 06/14/23 06:00 06/14/23 06:00 06/14/23 06:00 06/14/23 06:17 Operation Date: 06/14/23 07:00 Proposed Procedures p Left Total Hip Arthroplasty(Left) - Jina Walden MD Familial anesthetic complications: Has reactions to pain meds including nausea and rash, wishes to avoid all opiates Was Beta Lynn taken within 24 hours: N/A Was Clonidine taken within 24 hours: N/A Last intake: Intake Last Liquid Date 06/13/23 Last Liquid Time 23:30 Last Solid Date 06/13/23 Last Solid Time 17:00 Social No alcohol and No tobacco Exam alert, oriented x 3, clear to auscultation bilaterally and regular rate & rhythm Airway Mallampati: Class I Dentition: full CV/HEM Coronary Artery Disease (CABG w/ stents ), Congestive Heart Failure (diastolic) and Hypertension has been holding plavix for 7 days per patient GI Gastroesophageal Reflux Disease Metabolic Diabetes Mellitus and Morbid Obesity Anesthetic Plan ASA status: 3 Anesthesia: Regional (specify below) Risk of > 500 ml blood loss (7ml/kg in children): Yes, adequate IV access and fluids planned Medications/Allergies Home Medications Medication Instructions Recorded Confirmed Last Taken Type acetaminophen 325 mg tablet 325 mg PO DAILY PRN Pain 07/02/19 06/14/23 06/07/23 History (Tylenol) cholecalciferol (vitamin D3) 25 25 mcg PO DAILY 07/02/19 06/13/23 06/04/23 History mcg (1,000 unit) capsule cyanocobalamin (vitamin B-12) 1,000 mcg PO DAILY 07/02/19 06/13/23 06/06/23 History 1,000 mcg capsule glucosamine HCl 1,500 mg tablet 1,500 mg PO BID 07/02/19 06/13/23 06/13/23 History multivitamin 1 tab PO DAILY 07/02/19 06/13/23 06/06/23 History nitroglycerin 0.4 mg sublingual 0.4 mg sublingual Q5M PRN chest 07/31/19 06/13/23 Unknown Rx tablet (Nitrostat) pain 30 days #25 tabs aspirin 81 mg tablet,delayed 81 mg PO BID 03/02/21 06/13/23 06/04/23 History release (Adult Low Dose Aspirin) omega-3 fatty acids 1,000 mg 1,000 mg PO BID 03/02/21 06/13/23 06/06/23 History capsule (Fish Oil Concentrate) Achilles lift to the right #1 ea 04/08/21 06/06/23 Unknown Rx omeprazole 40 mg capsule,delayed See Rx Instructions .Route 01/03/23 06/13/23 06/13/23 Rx release .COMPLEX #60 caps atorvastatin 40 mg tablet 40 mg PO DAILY #90 tabs 02/26/23 06/13/23 06/04/23 Rx meloxicam 15 mg tablet 15 mg PO DAILY #30 tabs 02/27/23 06/13/23 06/06/23 Rx clopidogrel 75 mg tablet (Plavix) 75 mg PO DAILY #90 tabs 05/11/23 06/13/23 06/06/23 Rx losartan 25 mg tablet 25 mg PO DAILY #90 tabs 05/11/23 06/13/23 06/06/23 Rx levothyroxine 112 mcg tablet 112 mcg PO DAILY 06/13/23 06/13/23 06/11/23 History metoprolol tartrate 50 mg tablet 50 mg PO BID 06/13/23 06/13/23 06/14/23 History Allergies Allergy/AdvReac Type Severity Reaction Status Date / Time opioids Allergy rash, Uncoded 06/14/23 06:04 vomiting, confusion Current Medications Generic Name Dose Route Start Last Admin Trade Name Freq PRN Reason Stop Dose Admin Sodium Chloride 1,000 mls @ 30 mls/hr 06/14/23 06:00 06/14/23 06:28 Sodium Chloride 0.9% IV 06/15/23 05:59 30 mls/hr .Q24H JACKSON Administration PFSH Anesthesia Medical History HTN (hypertension) Hyperlipidemia Coronary artery disease Diastolic heart failure Surgical History Hx of cataract surgery Bilateral - 2022 Dupuytren contracture Surgery 2022 - right hand S/P hernia repair S/P knee surgery S/P hysterectomy S/P CABG (coronary artery bypass graft) S/P right coronary artery (RCA) stent placement Family History Father Hypertension Heart disease Stroke Cancer brain Mother Cancer cervical Sister Cancer Other Hypercholesterolemia Social History Smoking and tobacco/nicotine status: never used tobacco/nicotine Alcohol intake: never Substance/Drug Use: never Data Anesthesia Cardiac Studies: Sestamibi Stress Test (Cardiology) 09/15/20
--- NOTE | 2023-06-14 07:00 | P.HPUD_ITS ---
Surgery/Procedure H&P Update DATE OF PROCEDURE: June 14, 2023 DATE H&P PERFORMED: 06/06/23 H&P UPDATE INFORMATION: I have reviewed H&P completed within last 30 days, I have examined patient prior to procedure, No changes to prior documentation and H&P is in [facility] [place] EMR on date indicated PLANNED PROCEDURE: Operation Date: 06/14/23 07:00 Proposed Procedures p Left Total Hip Arthroplasty(Left) - Jina Walden MD Related Problem List Diagnoses (1) Primary osteoarthritis of left hip:
[2023-06-14] MEDS: ceFAZolin 2,000 MG in sodium chloride 0.9% (plus) 50 ML 100 MG IV ×2 (07:10→14:34)
[2023-06-14] MEDS: tranexamic acid 1,000 mg/10mL SDV 1000 MG IV (07:51)
[2023-06-14] MEDS: vancomycin 1,000 MG SDV 1000 MG XX (08:02)
[2023-06-14] MEDS: ceFAZolin 1,000 mg SDV 1000 MG IRRIGATION (08:03)
--- NOTE | 2023-06-14 09:50 | XR_ITS ---
WS: [id number] Exam: XR pelvis 1-2V* [id number] Date/Time of Exam: 06/14/2023 9:50 AM Reason For Exam: Left total hip Comparison 05/09/2023. A LEFT total hip prosthesis has been placed. Postoperative changes in the adjacent soft tissues. Surg ical clips in the upper medial thigh. IMPRESSION: 1. LEFT total hip replacement as noted above.
--- NOTE | 2023-06-14 09:56 | PM.OP ---
Operative Report Date of procedure: June 14, 2023 Pre-op diagnosis: Primary osteoarthritis left hip Post-op diagnosis: Primary osteoarthritis left hip Post-op findings: Severe degenerative osteoarthritis of the left hip with synovitis appearing inflammatory and multiple osteophytes Procedure done: Left total hip arthroplasty Implants: The Dimitrios total hip system with a size 52 mm by E alpha code Trident II Tritanium acetabular shell with an MDM liner size 42 mm inner diameter by E alpha code.? A size 6 Accolade II 127? neck angle hip stem with a size 28 mm x +0 mm femoral head and a anglican MDM X3 insert size 28 mm x 42E Specimens removed/disposition: Femoral head sent for pathology evaluation, synovium and bone marrow also sent to pathology Surgeon: Jina Walden MD Defense Travel Administrator: Adeline Sahni NP, who was necessary for positioning, retraction, and manipulation of the leg as well as closure. Anesthesia: Spinal (With MAC, ASA 3) Estimated blood loss (mL): 150 IV fluids (mL): 300 Urine output (mL): 100 Complications: None Findings: Severe degenerative osteoarthritis with multiple osteophytes, copious synovium, and femoral head deformity. Following placement of the prosthetic components, the hip was stable at 90 degrees of flexion with 70 degrees of internal rotation. It was also stable at 90 degrees of flexion with 30 degrees of adduction and 60 degrees of internal rotation. It was stable to toe hang as well. Condition: stable Disposition: PACU (Then to floor for postoperative rehabilitation and pain management) Brief History: This 73-year-old woman presented to the office with severe left hip pain. Preoperatively, she had x-rays which demonstrated complete obliteration of joint space and cystic changes in the femoral head. The MRI demonstrated advanced osteoarthritis with [id number] articulation and subchondral cyst and edema involving both the acetabulum and femoral head. In addition, there was a tiny nondisplaced hairline fracture involving the left femoral head extending to the articular surface. After discussion, the patient wished to proceed with left total hip arthroplasty. Risks and complications were discussed with her. Questions were answered and consents were signed in the office. Procedure: Patient was brought to the operating theater.? She was transferred to the operating room table and subsequently administered a spinal anesthesia with MAC, ASA 3.? Following administration of adequate anesthesia, the patient was placed in full lateral position and held in position with a pegboard.? The patient's left lower extremity was then prepped and draped in usual fashion utilizing DuraPrep.? It was draped free.? Following prepping and draping, a surgical pause was performed.? At the time of surgical pause, we identified the site and side of surgery.? We also identified the patient and preoperative surgical markings.?The patient's operative leg was compared to the opposite leg.? Confirmation was made of equipment availability.? Additionally, the patient's preoperative IV antibiotic, Ancef 2 g, and TXA administration was confirmed as well.? X-rays were also reviewed. Following the surgical pause, an incision was made centering over the patient's greater trochanter continuing proximally and distally as necessary to allow access to the hip joint.? Dissection continued through skin and soft tissues using a scalpel, and hemostasis was obtained using electrocautery. The tensor fascia jass was identified and incised longitudinally.? Sciatic nerve was identified and protected throughout the surgical procedure.? A Charnley U retractor was placed after the tensor fascia jass had been incised longitudinally, and the sciatic nerve had been identified.? The hip was internally rotated, and the piriformis muscle was identified and tagged. Piriformis muscle along with the remaining short external rotators were then incised from the posterior aspect of the hip joint.? These were retracted posteriorly.? The capsule was entered in a T-type fashion with the edges being tagged, and subsequently the hip was dislocated.? The labrum was excised with further excision accomplished once the femoral head was removed.? Following hip dislocation, a femoral neck osteotomy was accomplished in the appropriate position.? The head was measured, but it was quite deformed.? We then evaluated the acetabulum. The femur was retracted anteriorly.? Soft tissues were retracted, and the labrum was removed.? Labrum was noted to be quite large and deformed. We then began reaming.? Once the femoral head was removed, there was noted to be significant loss of cartilage over the head with the previously noted deformity and cartilage loss within the acetabulum.? We reamed to a size 51 to allow for a size 52 acetabular shell.? The acetabulum was impacted into position.? The MDM liner was then impacted into position with care being taken to assure it seated appropriately.? It was noted that the acetabulum matched the bony anatomy.? The cup was noted to seat nicely and had good fixation upon impact. Large osteophytes were removed from the anterior aspect of the acetabulum following cup insertion. Attention was directed to the proximal femur.? The proximal femur was lifted out of the wound.? A canal finder was passed after the box chisel.? The reamer was used to lateralize.? We then began broaching. We broached sequentially and had excellent fit and fill with the size 6 broach. ? A trial reduction was accomplished with a +0 mm femoral head offset, and this gave excellent stability as noted above.? With this construct, with the final trial, the hip was noted to be stable, and leg length was felt to be equal.? The final construct included a +0 mm femoral head with the above-noted stem and acetabulum. With this in place, we had the above stabilities.? This was felt to be excellent stability. Therefore, trial components were removed after the hip was dislocated.? The size 6 Accolade II 127? neck angle stem was impacted into position without difficulty and onto this was placed a +0 mm x 28 mm femoral head which had been assembled into the MDM insert size 42E.? With a +0 mm femoral head, we had the above-noted stability.? The stem was noted to seat nicely prior to placement of the femoral head.? The wound was copiously irrigated with 20 mL of Betadine and 500 mL of normal saline mixed together.? Subsequently, we suctioned this out and irrigated the wound copiously with lactated Ringer's.? At this time, with all components in appropriate position, the hip was reduced.? Following reduction of the prosthesis once again, we confirmed the stability of the hip.? Leg lengths were also felt to be satisfactory. Being satisfied with the prosthesis, attention was directed to closure.? Closure was accomplished with 0 Vicryl in the capsular tissues.? Piriformis was reattached with 0 Vicryl as well.? Tensor fascia jass was closed with 0 Vicryl in an interrupted fashion.? The subcutaneous tissues were closed with combination of 0 Vicryl and 2-0 Monocryl.? Vancomycin powder and a Gelfoam thrombin mixture was placed into the wound as well.? The skin was closed with a running 3-0 Monocryl followed by Dermabond Prineo followed by OpSite.? The patient was placed in an abduction pillow.? She was returned the Recovery Room in a satisfactory condition and will be discharged to the floor for postoperative rehabilitation and pain management.? There were no complications or specimens. Related Problem List Diagnoses (1) Primary osteoarthritis of left hip:
--- NOTE | 2023-06-14 10:35 | ANE.PACU2 ---
Inpatient post-anesthesia follow up: Airway intact: Yes Vital signs: Temperature 97.2 F Pulse Rate 72 Respiratory Rate 20 Blood Pressure 124/77 Pulse Oximetry 93 Oxygen Delivery Me thod Room Air Oxygen Flow Rate 6 Fraction of Inspir ed Oxygen Hydration adequate: Yes Nausea and vomiting: No Pain level: 1 Mental status: Baseline
--- NOTE | 2023-06-14 12:29 | PC.NURSE ---
Pt comes to floor with allergies of Tramadol and Opiods. Pt rates pain at 8/10. Tylenol and Celebrex ordered, scheduled. Notified Dr. Walden of increased pain. No new orders at this time.
[2023-06-14] MEDS: chlorhexidine gluconate 0.12% Btl 473 mL 30 ML MUCOUS MEM ×2 (14:33→17:29)
[2023-06-14] MEDS: gabapentin 400 mg Capsule PO (14:34)
[2023-06-14] MEDS: mupirocin oint 22 gm 1 APPLIC NASAL (17:28)
[2023-06-14] MEDS: calcium carbonate 500 mg Chew Tablet 1000 MG PO (17:29)
[2023-06-14] MEDS: metoprolol tartrate 50 mg Tablet PO (17:29)
[2023-06-14] MEDS: iron polysaccharide complex 150 mg Capsule PO (17:29)
[2023-06-14] MEDS: sennosides-docusate Tablet 2 TAB PO (17:29)
--- NOTE | 2023-06-14 22:41 | PC.NURSE ---
pt roundings pt has had eyes closed, resps non labored and even for every rounding this nurse had done since I came on shift.
[2023-06-15] VITALS: BP 113/59; PULSE 64; RESP 17; TEMP 36.7; O2SAT 92
[2023-06-15] MEDS: gabapentin 400 mg Capsule PO ×2 (00:50→07:39)
[2023-06-15] MEDS: acetaminophen 1,000 MG/100 ML PIGGYBACK 400 MG IV ×2 (00:50→06:10)
[2023-06-15] MEDS: chlorhexidine gluconate 0.12% Btl 473 mL 30 ML MUCOUS MEM ×2 (00:50→07:55)
[2023-06-15] MEDS: ceFAZolin 2,000 MG in sodium chloride 0.9% (plus) 50 ML 100 MG IV ×2 (00:51→06:11)
[2023-06-15] MEDS: CELEcoxib 200 mg Capsule PO ×2 (00:56→07:40)
--- NOTE | 2023-06-15 03:55 | PC.NURSE ---
pedal pulse this nurse able to palpate pedal pulse while pt sleeping for last two pedal pulse checks.
[2023-06-15 04:00] VITALS: BP 116/69; PULSE 61; RESP 17; TEMP 36.6; O2SAT 93
[2023-06-15 05:02] LABS: Basophils % 0.1 %; Eosinophils % 0.2 %; Hematocrit 34.4 % (36-47); Lymphocytes # 1.1 10^3/uL (0.8-4.8); Lymphocytes % 13.6 %; Mean Corpuscular HGB Conc 32.6 g/dL (30-55); Mean Corpuscular Hemoglobin 30.9 pg (27-33); Mean Corpuscular Volume 94.8 fl (85-98); Mean Platelet Volume 9.7 fL (7.4-10.4); Monocytes % 12.5 %; Neutrophils # 6.01 10^3/uL (1.8-7.7); Neutrophils % 73.1 %; Nucleated Red Blood Cells % 0 %; Platelet Count 233 10^3/cmm (157-399); Red Blood Count 3.63 10^6/uL (3.85-5.65); Red Cell Distribution Width 12.8 % (12.1-15.1); White Blood Count 8.23 10^3/uL (3.29-11.43)
[2023-06-15 05:24] LABS: Anion Gap 11.2 (5-19); Blood Urea Nitrogen 15 mg/dL (8-23); Carbon Dioxide 26 mmol/L (22-29); Chloride 109 mmol/L (98-107); Glucose 104 mg/dL (65-115); Osmolality Calculated 295 mOsm/kg (285-295); Potassium 4.2 mmol/L (3.5-5.1); Sodium 142 mmol/L (136-145)
[2023-06-15 06:00] VITALS: BMI 38.2
[2023-06-15] MEDS: aspirin 325 mg EC Tablet PO (07:39)
[2023-06-15] MEDS: sennosides-docusate Tablet 2 TAB PO (07:39)
[2023-06-15] MEDS: calcium carbonate 500 mg Chew Tablet 1000 MG PO (07:39)
[2023-06-15] MEDS: cholecalciferol (vitamin D3) 1,000 unit Tablet 1000 UNIT PO (07:39)
[2023-06-15] MEDS: atorvastatin 40 mg Tablet PO (07:40)
[2023-06-15] MEDS: levothyroxine 112 mcg Tablet PO (07:40)
[2023-06-15] MEDS: multivitamin therapeutic Tablet 1 TAB PO (07:40)
[2023-06-15] MEDS: iron polysaccharide complex 150 mg Capsule PO (07:40)
[2023-06-15] MEDS: metoprolol tartrate 50 mg Tablet PO (07:41)
[2023-06-15] MEDS: clopidogrel 75 mg Tablet PO (07:41)
[2023-06-15] MEDS: losartan 50 mg Tablet 25 MG PO (07:41)
[2023-06-15] MEDS: mupirocin oint 22 gm 1 APPLIC NASAL (07:55)
[2023-06-15 08:00] VITALS: BP 136/72; PULSE 61; PULSE 70; RESP 18; TEMP 36.5; O2SAT 93; O2SAT 96
--- NOTE | 2023-06-15 09:55 | PC.NURSE ---
Antonio catheter removed per order. Tolerated well.
--- NOTE | 2023-06-15 10:15 | PC.CHAP ---
Pastoral Care Encounter/Spiritual Assessment Type of Contact [] Declined secretary to board of commissioners visit [] Patient/Family/Request visit [] Outpatient visit [] Follow-up visit [] Physician referral [] Code/Alert [] Routine visit [] Staff referral [] Actively dying [x] Patient sleeping [] Family support [] [] Out of room [] Palliative care [] [] Receiving care in room [] Pre-surgical visit [] Trauma [] Long length of stay [] ICU visit [] Other: Relational/Emotional Strength [] Patient feels connected with others/family/visitors/staff [] Distress [] Loneliness/isolation [] Abandonment Spirituality of Patient [] Person of Oralia [] Attends Tenriism of their Oralia [] Believes in Prayer [] Reads Bible or Buddhism materials [] There are Spiritual issues to be addressed Zoology Teacher Interventions [] Prayer [] Active listening [] Non-anxious presence [] Spiritual/emotional support [] Crisis/trauma care [] Spiritual counseling [] Bereavement support [] Provided bereavement packet [] Provided Bible/devotional materials [] Provided toy/stuffed animal, coloring book to patient or family member [] Provided Communion [] Anointing/[place] [] Salvation [] Completed spiritual assessment [] Other: Impact on Illness or Injury [] Angry [] Fearful [] Anxious [] Often cries [] Exhaustion [] Unable to work [] Unable to attend mandaeism [] Unable to walk/stand [] Unable to read [] Unable to drive [] Unable to eat/drink [] Unable to sleep [] Unable to be with family [] Patient intubated [] Other: Summary Time spent with patient
[2023-06-15 11:43] VITALS: BP 112/65; PULSE 54; RESP 18; TEMP 36.3; O2SAT 93
--- NOTE | 2023-06-15 14:03 | P.DS_ITS ---
Discharge Providers Date of Admission: 06/14/23 10:22 Date of Discharge: June 15, 2023 Attending Provider at Admission: Jina Walden MD Attending Provider at Discharge: Jina Walden MD Primary Care Provider: Siva Alcala MD Diagnoses at Discharge Discharge Diagnosis (1) Status post left hip replacement: Status: Acute Permanent problem details: Date of procedure: June 14, 2023 Diagnosis: Primary osteoarthritis left hip Post-op findings: Severe degenerative osteoarthritis of the left hip with synovitis appearing inflammatory and multiple osteophytes Procedure done: Left total hip arthroplasty Implants: The Dimitrios total hip system with a size 52 mm by E alpha code Trident II Tritanium acetabular shell with an MDM liner size 42 mm inner diameter by E alpha code. A size 6 Accolade II 127? neck angle hip stem with a size 28 mm x +0 mm femoral head and a sabianist MDM X3 insert size 28 mm x 42E (2) Primary osteoarthritis of left hip: Status: Acute Reason for Visit Reason for Visit: M16.12 Brief History: This 73-year-old woman presented to the office with severe left hip pain. Preoperatively, she had x-rays which demonstrated complete obliteration of joint space and cystic changes in the femoral head. The MRI demonstrated advanced osteoarthritis with [id number]-[id number] articulation and subchondral cyst and edema involving both the acetabulum and femoral head. In addition, there was a tiny nondisplaced hairline fracture involving the left femoral head extending to the articular surface. After discussion, the patient wished to proceed with left total hip arthroplasty. Risks and complications were discussed with her. Questions were answered and consents were signed in the office. Hospital Course Hospital Course This 73-year-old woman was admitted under observation status following left total hip arthroplasty. The patient did well in spite of having difficulty with pain management secondary to allergies to tramadol and all opioids. She took Celebrex while in the hospital, but she wished to proceed with meloxicam when she was discharged. She felt her pain was controlled with Neurontin, Tylenol, and meloxicam. On the first postoperative day, she was working with physical therapy and was ambulating. She was felt to be safe for discharge to home, and her family felt safe in taking her home. Therefore, the patient was discharged home and will follow-up with me in the office as scheduled. Physical Exam Const: COMMON NORMALS: no acute distress, average body habitus, patient oriented x3, no limitations, healthy appearing, alert and well nourished GENERAL APPEARANCE: cooperative; not anxious and not combative ORIENTATION/CONSCIOUSNESS: Yes awake, Yes oriented to person, Yes oriented to place and Yes oriented to time HENMT: COMMON NORMALS: normocephalic and atraumatic HEAD & SCALP: normocephalic and atraumatic Eye: GENERAL EYE: appearance normal, both eyes and all related structures EYELID: eyelids normal Chest: COMMONS NORMALS: normal inspection of the chest Resp: COMMON NORMALS: normal respiratory effort EFFORT & INSPECTION: Yes able to speak in complete sentences and Yes symmetric chest movement Extremity: LEFT LOWER EXTREMITY: Yes hip joint (Some ecchymosis is present. Dressing dry and intact) Left hip: Yes inspection (Thigh is soft to palpation), Yes palpation (Minimal to no discomfort), Yes ROM (Not evaluated.) and Yes neurovascular exam (Intact distally with no evidence of DVT) Neuro: COMMON NORMALS: patient oriented x3 SENSORIUM/ORIENTATION: Yes alert, Yes oriented to person, Yes oriented to place and Yes oriented to time SPEECH: speech normal Psych: ATTITUDE: Yes calm and Yes engaged ACTIVITY/MOTOR BEHAVIOR: Yes appropriate eye contact ATTENTION/CONCENTRATION: Yes attention grossly intact MEMORY/COGNITION: Yes memory grossly intact Skin: COMMON NORMALS: no rashes or lesions noted and turgor normal; negative for no jaundice GENERAL SKIN EXAM: no rashes or lesions noted, turgor normal and no jaundice Urinary Catheter Management: Antonio: Cath Placed During This Visit: no Reason for Continuing Indwelling Catheter: Required Immobilization for Trauma or Surgery or Anesthesia Discharge Data Studies Completed and Pending Completed Studies During Hospitalization Category Date Time Status XR pelvis 1-2V* [id number] Routine Exams 06/14/23 09:50 Completed Pending at discharge Category Date Time Status Pathology: Surgical [PTH] Routine Pth 06/14/23 09:26 Received Laboratory Results WBC 8.23 10^3/uL (3.29-11.43) 06/15/23 04:21 RBC 3.63 10^6/uL (3.85-5.65) L 06/15/23 04:21 Hgb 11.20 g/dL (11.27-16.99) L 06/15/23 04:21 Hct 34.4 % (36-47) L 06/15/23 04:21 MCV 94.8 fl (85-98) 06/15/23 04:21 MCH 30.9 pg (27-33) 06/15/23 04:21 MCHC 32.6 g/dL (30-55) 06/15/23 04:21 RDW 12.8 % (12.1-15.1) 06/15/23 04:21 Plt Count 233 10^3/cmm (157-399) 06/15/23 04:21 MPV 9.7 fL (7.4-10.4) 06/15/23 04:21 Neut % (Auto) 73.1 % 06/15/23 04:21 Lymph % (Auto) 13.6 % 06/15/23 04:21 Shackelford % (Auto) 12.5 % 06/15/23 04:21 Eos % (Auto) 0.2 % 06/15/23 04:21 Baso % (Auto) 0.1 % 06/15/23 04:21 Neut # (Auto) 6.01 10^3/uL (1.8-7.7) 06/15/23 04:21 Lymph # (Auto) 1.1 10^3/uL (0.8-4.8) 06/15/23 04:21 Shackelford # (Auto) 1.0 10^3/uL (0.2-0.9) H 06/15/23 04:21 Eos # (Auto) 0.0 10^3/uL (0.0-0.8) 06/15/23 04:21 Baso # (Auto) 0.0 10^3/uL (0.0-0.1) 06/15/23 04:21 Nucleated RBC % (auto) 0 % 06/15/23 04:21 Nucleated RBCs # 0.0 /100WBC 06/15/23 04:21 Sodium 142 mmol/L (136-145) 06/15/23 04:21 Potassium 4.2 mmol/L (3.5-5.1) 06/15/23 04:21 Chloride 109 mmol/L (98-107) H 06/15/23 04:21 Carbon Dioxide 26 mmol/L (22-29) 06/15/23 04:21 Anion Gap 11.2 (5-19) 06/15/23 04:21 BUN 15 mg/dL (8-23) 06/15/23 04:21 Creatinine 0.6 mg/dL (0.5-0.9) 06/15/23 04:21 GFR Calculation Not Reportable 06/15/23 04:21 Glucose 104 mg/dL (65-115) 06/15/23 04:21 Calculated Osmolality 295 mOsm/kg (285-295) 06/15/23 04:21 Calcium 9.0 mg/dL (8.5-10.5) 06/15/23 04:21 Vitals Last Vital Signs Temp 97.4 F L 06/15/23 11:43 Pulse 54 L 06/15/23 11:43 Resp 18 06/15/23 11:43 BP 112/65 06/15/23 11:43 Pulse Ox 93 06/15/23 11:43 O2 Del Method Room Air 06/15/23 11:43 O2 Flow Rate 6 06/14/23 10:02 Discharge Plan Discharge Patient Disposition: Home Health Service Condition: Stable Prescriptions: New acetaminophen 500 mg Tablet 1,000 mg PO Q8H Qty: 0 0RF aspirin 325 mg Tablet,Delayed Release (Dr/Ec) 325 mg PO DAILY 30 Days Qty: 0 0RF Continued omega-3 fatty acids [Fish Oil Concentrate] 1,000 mg capsule 1,000 mg PO BID (DME) Achilles lift to the right See Rx Instructions .Route .MEDSUPPLY Qty: 1 0RF Rx Instructions: As directed cyanocobalamin (vitamin B-12) 1,000 mcg capsule 1,000 mcg PO DAILY cholecalciferol (vitamin D3) 25 mcg (1,000 unit) capsule 25 mcg PO DAILY multivitamin Tablet 1 tab PO DAILY glucosamine HCl 1,500 mg tablet 1,500 mg PO BID acetaminophen [Tylenol] 325 mg tablet 325 mg PO DAILY PRN (Reason: Pain) clopidogrel [Plavix] 75 mg tablet 75 mg PO DAILY Qty: 90 3RF losartan 25 mg tablet 25 mg PO DAILY Qty: 90 3RF nitroglycerin [Nitrostat] 0.4 mg tablet, sublingual 0.4 mg SUBLINGUAL Q5M PRN (Reason: chest pain) 30 Days Qty: 25 6RF omeprazole 40 mg capsule,delayed release(DR/EC) See Rx Instructions .ROUTE .COMPLEX Qty: 60 6RF Dose Instruction: Take 1 capsule by mouth twice daily Rx Instructions: Take 1 capsule by mouth twice daily atorvastatin 40 mg tablet 40 mg PO DAILY Qty: 90 3RF meloxicam 15 mg tablet 15 mg PO DAILY Qty: 30 3RF metoprolol tartrate 50 mg tablet 50 mg PO BID levothyroxine 112 mcg tablet 112 mcg PO DAILY turmeric 400 mg Capsule See Rx Instructions .ROUTE .COMPLEX Rx Instructions: Take 1 capsule by mouth at noon and supper. Held aspirin [Adult Low Dose Aspirin] 81 mg tablet,delayed release (DR/EC) 81 mg PO BID Hold Instructions: Resume on 07/14/23. Discharge Orders: Discharge Order (Routine); Ordered 06/15/23 Ordered By: Jina Walden Referrals: [facility] [Outside] Jina Walden MD [Physician] - 06/28/23 2:45 pm Discharge Diet: Advance as tolerated and Usual diet Discharge Activity: Increase activity as tolerated, Limit activity as instructed, Use walker/crutches as instructed and As per PT/OT instructions Patient Instructions: Acetaminophen (By mouth), Aspirin (By mouth), Precautions after Total Joint Replacement Surgery (GEN), Total Hip Replacement (GEN), Joint Replacement Stoplight, Opioid Safety Activity Restrictions/Additional Instructions: Posterior hip precautions as instructed per hospital physical therapy and home physical therapy. Weightbearing as tolerated, gait training, and strengthening. Maintain current dressing until it comes off on its own. You may shower, but do not soak your hip in water. Discharge Attestations Time Spent in Discharge Care*: greater than 30 min Specific Discharge Activities: educating patient, documenting/other paperwork and evaluating patient/reviewing data Quality Metrics Clinical Quality Measures [ No reported AMI, CVA or VTE this stay] Coding Level of Care Code Acute Code for Chg Fwd Diagnoses Status post left hip replacement Z96.642 Primary osteoarthritis of left hip M16.12
[2023-06-15 15:00] VITALS: BP 112/65; PULSE 54; RESP 18; TEMP 36.3; O2SAT 93
== END 2023-06-15 15:01 | disposition home health service (06) ==
LOC: MEDSURG 10:24
PROVIDERS: Admitting Provider Specialist; PCP Family Medicine; Visit Provider Specialist
PROC: (CPT 27130; principal; 2023-06-14 07:00)
DX: M16.12 Unilateral primary osteoarthritis, left hip (principal); M65.9 Synovitis and tenosynovitis, unspecified; M25.752 Osteophyte, left hip; I25.10 Atherosclerotic heart disease of native coronary artery without angina pectoris; Z95.1 Presence of aortocoronary bypass graft; Z95.5 Presence of coronary angioplasty implant and graft; I11.0 Hypertensive heart disease with heart failure; I50.30 Unspecified diastolic (congestive) heart failure; Z79.02 Long term (current) use of antithrombotics/antiplatelets; K21.9 Gastro-esophageal reflux disease without esophagitis; E11.9 Type 2 diabetes mellitus without complications; E66.01 Morbid (severe) obesity due to excess calories; Z68.38 Body mass index [BMI] 38.0-38.9, adult; Z79.82 Long term (current) use of aspirin; E78.5 Hyperlipidemia, unspecified
CPT/HCPCS: 27130; 36415; 72170; 80048; 85025; 88304; 88305; 88307; 88311; 97110; 97116; 97162; 97166; C1776; G0378; J0131; J0690; J1100; J2371; J2405; J2704; J3010; J3370; J3490; J7030

== ENCOUNTER → 2023-06-28 14:32 | Outpatient (BNVA) | payer MEDICARE, OTHER, SELFPAY | PROVIDERS: PCP Family Medicine; Visit Provider Nurse Practitioner | DX: Z96.642 Presence of left artificial hip joint | CPT/HCPCS: 99024 ==

== ENCOUNTER → 2023-07-11 10:16 | Outpatient (BNVA) | payer MEDICARE, OTHER, SELFPAY | PROVIDERS: PCP Family Medicine; Visit Provider Internal Medicine | DX: R73.09 Other abnormal glucose (principal); E83.42 Hypomagnesemia; R73.03 Prediabetes; I10 Essential (primary) hypertension; R23.2 Flushing; R63.5 Abnormal weight gain; R53.83 Other fatigue; Z68.36 Body mass index [BMI] 36.0-36.9, adult | CPT/HCPCS: 99204 ==

== ENCOUNTER 2023-07-16 08:58 | Outpatient (CLI) | payer MEDICARE, OTHER, SELFPAY ==
[2023-07-25 15:46] LABS: IGF1 LC/MS 79 ng/mL (34-245); Z Score (Female) -0.5 SD (-2.0 - +2.0)
== END 2023-07-16 08:59 | disposition home or self-care (01) ==
LOC: LAB 08:59
PROVIDERS: PCP Family Medicine; Visit Provider Internal Medicine
DX: R73.09 Other abnormal glucose (principal); E55.9 Vitamin D deficiency, unspecified; E83.42 Hypomagnesemia; R73.03 Prediabetes; I10 Essential (primary) hypertension
CPT/HCPCS: 36415; 84305

== ENCOUNTER 2023-07-17 10:19 | Outpatient (CLI) | payer MEDICARE, OTHER, SELFPAY ==
[2023-07-17 12:46] LABS: Total Volume Urine 700 ml
[2023-07-17 12:53] LABS: Urine Creatinine 115 mg/dL (28-217)
[2023-07-21 23:01] LABS: Calculated Total (E+NE) 33 mcg/24 h (26-121)
[2023-07-22 16:59] LABS: Free Cortisol Urine 18.7 mcg/24 h (4.0-50.0); Total Urine 700 mL; Urine Creatinine 0.67 g/24 h (0.50-2.15)
[2023-08-01 10:51] LABS: 24 Hour Urine Volume 700
[2023-08-01 15:10] LABS: 5-HIAA, 24 Hour Urine 2.1 mg/24 h (< OR = 6.0)
== END 2023-07-17 10:20 | disposition home or self-care (01) ==
LOC: LAB 10:22
PROVIDERS: PCP Family Medicine; Visit Provider Internal Medicine
DX: R73.09 Other abnormal glucose (principal); E83.42 Hypomagnesemia; R73.03 Prediabetes; I10 Essential (primary) hypertension
CPT/HCPCS: 82384; 82530; 82570; 83497

== ENCOUNTER → 2023-08-13 09:19 | Outpatient (BNVA) | payer MEDICARE, OTHER, SELFPAY | PROVIDERS: PCP Family Medicine; Visit Provider Nurse Practitioner | DX: Z96.642 Presence of left artificial hip joint (principal) | CPT/HCPCS: 73502; 99024 ==

== ENCOUNTER → 2023-09-10 13:10 | Outpatient (BNVA) | payer MEDICARE, OTHER, SELFPAY | PROVIDERS: PCP Family Medicine; Visit Provider Internal Medicine Cardiovascular Disease | DX: I11.0 Hypertensive heart disease with heart failure (principal); I50.32 Chronic diastolic (congestive) heart failure; I25.119 Atherosclerotic heart disease of native coronary artery with unspecified angina pectoris; Z95.5 Presence of coronary angioplasty implant and graft; E78.2 Mixed hyperlipidemia; Z95.1 Presence of aortocoronary bypass graft; R73.03 Prediabetes | CPT/HCPCS: 99213 ==

== ENCOUNTER → 2023-10-12 10:04 | Outpatient (BNVA) | payer MEDICARE, OTHER, SELFPAY | PROVIDERS: PCP Family Medicine; Visit Provider Internal Medicine | DX: R23.2 Flushing (principal); E55.9 Vitamin D deficiency, unspecified; R73.03 Prediabetes; R63.5 Abnormal weight gain; R53.83 Other fatigue; I50.32 Chronic diastolic (congestive) heart failure; Z79.890 Hormone replacement therapy; Z68.38 Body mass index [BMI] 38.0-38.9, adult | CPT/HCPCS: 99214 ==

== ENCOUNTER 2023-11-27 09:20 | Outpatient (CLI) | payer MEDICARE, OTHER, SELFPAY | END 2023-11-27 09:21 | disposition home or self-care (01) | LOC: RT 09:20 | PROVIDERS: PCP Family Medicine; Visit Provider Family Medicine | DX: R06.2 Wheezing (principal) | CPT/HCPCS: 94010; 94726; 94729 ==

== ENCOUNTER → 2024-04-02 12:58 | Outpatient (BNVA) | payer MEDICARE, OTHER, SELFPAY | PROVIDERS: PCP Family Medicine; Visit Provider Internal Medicine Cardiovascular Disease | DX: I25.10 Atherosclerotic heart disease of native coronary artery without angina pectoris (principal); I11.0 Hypertensive heart disease with heart failure; I50.9 Heart failure, unspecified; E78.2 Mixed hyperlipidemia; Z79.01 Long term (current) use of anticoagulants; R60.0 Localized edema | CPT/HCPCS: 99214 ==

== ENCOUNTER 2024-04-08 11:25 | Outpatient (CLI) | payer MEDICARE, OTHER, SELFPAY ==
[2024-04-08 12:13] LABS: Basophils % 0.5 %; Eosinophils # 0.2 10^3/uL (0.0-0.8); Eosinophils % 2.9 %; Hematocrit 48.1 % (36-47); Lymphocytes # 1.3 10^3/uL (0.8-4.8); Lymphocytes % 20.2 %; Mean Corpuscular HGB Conc 32.2 g/dL (30-55); Mean Corpuscular Hemoglobin 30.5 pg (27-33); Mean Corpuscular Volume 94.7 fl (85-98); Mean Platelet Volume 9.8 fL (7.4-10.4); Monocytes # 0.7 10^3/uL (0.2-0.9); Monocytes % 10.8 %; Neutrophils # 4.32 10^3/uL (1.8-7.7); Neutrophils % 65.4 %; Nucleated Red Blood Cells % 0 %; Platelet Count 296 10^3/cmm (157-399); Red Blood Count 5.08 10^6/uL (3.85-5.65); Red Cell Distribution Width 12.8 % (12.1-15.1); White Blood Count 6.59 10^3/uL (3.29-11.43)
[2024-04-08 12:29] LABS: Anion Gap 15.6 (5-19); Blood Urea Nitrogen 27 mg/dL (8-23); Calcium 9.1 mg/dL (8.5-10.5); Carbon Dioxide 27 mmol/L (22-29); Chloride 102 mmol/L (98-107); Glucose 108 mg/dL (65-115); Osmolality Calculated 296 mOsm/kg (285-295); Potassium 4.6 mmol/L (3.5-5.1); Sodium 140 mmol/L (136-145)
== END 2024-04-08 11:26 | disposition home or self-care (01) ==
LOC: LAB 11:25
PROVIDERS: PCP Family Medicine; Visit Provider Internal Medicine Cardiovascular Disease
DX: I10 Essential (primary) hypertension (principal); I25.119 Atherosclerotic heart disease of native coronary artery with unspecified angina pectoris; I50.32 Chronic diastolic (congestive) heart failure
CPT/HCPCS: 36415; 80048; 85025

== ENCOUNTER → 2024-04-16 10:12 | Outpatient (BNVA) | payer MEDICARE, OTHER, SELFPAY | PROVIDERS: PCP Family Medicine; Visit Provider Nurse Practitioner Family | DX: I25.119 Atherosclerotic heart disease of native coronary artery with unspecified angina pectoris (principal); I11.0 Hypertensive heart disease with heart failure; I50.9 Heart failure, unspecified | CPT/HCPCS: 99213 ==

== ENCOUNTER 2024-04-25 11:00 | Outpatient (CLI) | payer MEDICARE, OTHER, SELFPAY ==
--- NOTE | 2024-04-25 11:15 | USCV_ITS ---
YueHector serrano Age: 74 Gender: F : 1950 Exam Date: 04/25/2024 11:32 Ordering Phys: Sindhu Keith MD ([email or web address]) Technologist: Kevin Bowie Exam Location: [facility] [place] Indication: CAD BP: 138 / 90 HR: 82 Rhythm: Sinus Technical Quality: Adequate MEASUREMENTS (Male / Female) Normal Values 2D ECHO LV Diastolic Diameter PLAX 4.0 cm 4.2 - 5.9 / 3.9 - 5.3 cm IVS Diastolic Thickness 1.3 cm 0.6 - 1.0 / 0.6 - 0.9 cm IVS Systolic Thickness 1.5 cm LVPW Diastolic Thickness 1.5 cm 0.6 - 1.0 / 0.6 - 0.9 cm LVPW Systolic Thickness 2.1 cm LVOT Diameter 2.0 cm LV Ejection Fraction 2D Teich 69.8 % LV Ejection Fraction MOD 4C 73.4 % LV Ejection Fraction MOD 2C 60.9 % LV Ejection Fraction 2C AL 64.3 % LA Diameter 3.8 cm RA Systolic Volume 4C AL 43.0 ml RA Systolic Volume 4C MOD 41.7 ml LA Sys Volume AL 46.7 cm cubed LA Sys Volume Index AL 23.5 cm cubed/m squared Aorta at Sinotubular Diameter 2.1 cm IVC Diameter 1.7 cm M-MODE LA Ao Ratio MM 1.7 AV Cusp Separation MM 1.5 cm DOPPLER AV Peak Velocity 140.0 cm/s LVOT Peak Velocity 88.0 cm/s AV Area Cont Eq vti 2.2 cm squared AV Area Cont Eq pk 2.0 cm squared MV Peak Velocity 101.0 cm/s MV Area PHT 4.1 cm squared Mitral E to A Ratio 0.6 TV Peak Velocity 212.2 cm/s TR Peak Velocity 235.0 cm/s TR Peak Gradient 22.1 mmHg TR Mean Velocity 187.0 cm/s TR Mean Gradient 15.1 mmHg TR Velocity Time Integral 48.0 cm PV Peak Velocity 96.0 cm/s RV Ejection Time 0.3 s FINDINGS Left Ventricle Left ventricle is normal in size. LV systolic function is normal with EF of 55 to 60%. No regional wall motion abnormalities are seen. Grade 1 diastolic dysfunction Right Ventricle Normal in size and function Right Atrium Normal in size Left Atrium Normal in size Mitral Valve Structurally normal mitral valve. Trace mitral regurgitation. Aortic Valve Structurally normal aortic valve. No significant stenosis or regurgitation. Tricuspid Valve Mild tricuspid regurgitation. Pulmonary artery systolic pressure is normal. Pulmonic Valve Mild pulmonic regurgitation. Pericardium Normal Aorta Normal in size IVC Appears to be normal CONCLUSIONS LV systolic function is normal with EF of 55 to 60%. Grade 1 diastolic dysfunction. Trace mitral regurgitation Mild tricuspid regurgitation Mild pulmonic regurgitation Compared to prior echocardiogram from 2014, no signfiicant changes are seen. Freddie Piña MD (Electronically Signed) Final Date: 01 May 2024 08:17 S
== END 2024-04-25 11:01 | disposition home or self-care (01) ==
LOC: RAD 11:01
PROVIDERS: PCP Family Medicine; Visit Provider Internal Medicine Cardiovascular Disease
DX: I50.30 Unspecified diastolic (congestive) heart failure (principal); I25.10 Atherosclerotic heart disease of native coronary artery without angina pectoris; I50.9 Heart failure, unspecified; R06.02 Shortness of breath
CPT/HCPCS: 93306

== ENCOUNTER → 2024-04-30 10:44 | Outpatient (BNVA) | payer MEDICARE, OTHER, SELFPAY | PROVIDERS: PCP Family Medicine; Visit Provider Family Medicine | DX: E55.9 Vitamin D deficiency, unspecified (principal); Z51.81 Encounter for therapeutic drug level monitoring; E03.9 Hypothyroidism, unspecified; I25.10 Atherosclerotic heart disease of native coronary artery without angina pectoris; Z13.220 Encounter for screening for lipoid disorders; I50.9 Heart failure, unspecified; E53.8 Deficiency of other specified B group vitamins | CPT/HCPCS: 80053; 80061; 82306; 82607; 83735; 83880; 84439; 84443; 85025 ==

== ENCOUNTER → 2024-06-16 08:08 | Outpatient (BNVA) | payer MEDICARE, OTHER, SELFPAY | PROVIDERS: PCP Family Medicine; Visit Provider Nurse Practitioner | DX: Z96.642 Presence of left artificial hip joint (principal); M70.62 Trochanteric bursitis, left hip | CPT/HCPCS: 73502; 99213 ==

== ENCOUNTER → 2024-09-30 13:32 | Outpatient (BNVA) | payer MEDICARE, OTHER, SELFPAY | PROVIDERS: PCP Family Medicine; Visit Provider Internal Medicine Cardiovascular Disease | DX: R06.02 Shortness of breath (principal); I11.0 Hypertensive heart disease with heart failure; I50.30 Unspecified diastolic (congestive) heart failure; I25.10 Atherosclerotic heart disease of native coronary artery without angina pectoris; Z79.01 Long term (current) use of anticoagulants; Z79.82 Long term (current) use of aspirin; Z95.1 Presence of aortocoronary bypass graft; Z95.5 Presence of coronary angioplasty implant and graft | CPT/HCPCS: 99214 ==

== ENCOUNTER → 2024-10-21 09:29 | Outpatient (BNVA) | payer MEDICARE, OTHER, SELFPAY | PROVIDERS: PCP Family Medicine; Visit Provider Podiatrist Foot & Ankle Surgery | DX: D17.23 Benign lipomatous neoplasm of skin and subcutaneous tissue of right leg (principal); D17.24 Benign lipomatous neoplasm of skin and subcutaneous tissue of left leg; M25.571 Pain in right ankle and joints of right foot; M25.572 Pain in left ankle and joints of left foot | CPT/HCPCS: 73610; 99214 ==

== ENCOUNTER → 2025-03-31 13:41 | Outpatient (BNVA) | payer MEDICARE, OTHER, SELFPAY | PROVIDERS: PCP Family Medicine; Visit Provider Internal Medicine Cardiovascular Disease | DX: I25.10 Atherosclerotic heart disease of native coronary artery without angina pectoris (principal); I10 Essential (primary) hypertension; R06.00 Dyspnea, unspecified; E66.9 Obesity, unspecified; Z68.36 Body mass index [BMI] 36.0-36.9, adult | CPT/HCPCS: 99213 ==